=== PATIENT | male | born 1985 | race Caucasian/White ===

== ENCOUNTER 2017-01-09 08:41 | Emergency (ER) | payer OTHER ==
[2017-01-09 09:02] VITALS: BP 147/89
--- NOTE | 2017-01-09 09:12 | UC ---
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 BACK PAIN X 1 WEEK - History of Current Complaint Chief Complaint: UCBackPain Stated Complaint: BACK PAIN Time Seen by Provider: 01/09/17 09:05 Hx Obtained From: Patient Onset/Duration: Sudden Onset Severity Initially: Moderate Severity Currently: Mild Pain Scale Used: 0-10 Numeric - 7 Back Pain: Is Diffuse Character: Sharp, Spasmodic, Stiffness Aggravating: Movement, Lifting, Bending Associated Signs And Symptoms: Positive: Negative - Allergies/Home Medications Allergies/Adverse Reactions: Allergies Allergy/AdvReac Type Severity Reaction Status Date / Time Hydrocodone [From Vicodin] AdvReac Vomiting Verified 01/09/17 08:52 PMH/Surg Hx/FS Hx/Imm Hx Other History Of: Negative For: HIV, Hepatitis B, Hepatitis C, Anticoagulant Therapy - Surgical History Surgical History: None - Family History Known Family History: Positive: None, Hypertension, Diabetes Family History: no known cardio-vascular issues in family lineage - Social History Alcohol Use: None Substance Use Type: Marijuana Substance Use Comment - Amount & Last Used: Daily Smoking Status (MU): Current Every Day Smoker Type: Cigarettes Amount Used/How Often: 1 pack q 2-3 days Length of Time of Smoking/Using Tobacco: 16 years Have You Smoked in the Last Year: Yes Household Exposure Type: Cigarettes - Immunization History Most Recent Influenza Vaccination: not utd Most Recent Tetanus Shot: utd Most Recent Pneumonia Vaccination: none Review of Systems Skin: Negative Eyes: Negative ENT: Negative Motor: Negative Neurovascular: Negative Musculoskeletal: Negative Neurological: Negative Psychological: Negative All Other Systems Reviewed And Are Negative: Yes Physical Exam Triage Information Reviewed: Yes Appearance: Well-Appearing Vital Signs: Initial Vital Signs Temp 36.7 C 01/09/17 08:48 Pulse 79 01/09/17 08:48 Resp 16 01/09/17 08:48 BP 147/89 01/09/17 08:48 Pulse Ox 98 01/09/17 08:48 Eye Exam: Normal ENT Exam: Normal Neck exam: Normal Neck: Positive: Supple Respiratory Exam: Normal Cardiovascular Exam: Normal Abdominal Exam: Normal Musculoskeletal Exam: Normal Musculoskeletal: Positive: ROM Limited @ - PARASPINAL LUMBAR BACK SPASM Neurological Exam: Normal Skin Exam: Normal Back Pain Course/Dx - Differential Dx/Diagnosis Provider Diagnoses: BACK PAIN Discharge - Discharge Plan Condition: Stable Disposition: HOME
== END 2017-01-09 09:35 | disposition home or self-care (01) ==
LOC: UCEAST 08:41
DX: M54.9 Dorsalgia, unspecified (principal); F12.90 Cannabis use, unspecified, uncomplicated; Z88.5 Allergy status to narcotic agent; Z87.891 Personal history of nicotine dependence
CPT/HCPCS: 99212; G0463

== ENCOUNTER 2017-10-07 18:12 | Emergency (ER) | payer OTHER ==
[2017-10-07 18:23] VITALS: BP 146/84
--- NOTE | 2017-10-07 18:34 | UC ---
Respiratory Complaint HPI - HPI Summary HPI Summary: worsening right ear, sinus, and sore throat pain for over 1 week, cough also - History of Current Complaint Chief Complaint: UCRespiratory Stated Complaint: DIFFICULTY BREATHING,COUGH,ST Time Seen by Provider: 10/07/17 18:31 Hx Obtained From: Patient Onset/Duration: Sudden Onset, Lasting Weeks - 1, Still Present Timing: Constant Severity Initially: Severe Severity Currently: Severe Pain Intensity: 9 Pain Scale Used: 0-10 Numeric Character: Cough: Nonproductive Aggravating Factors: Nothing Alleviating Factors: Nothing Associated Signs And Symptoms: Positive: Fever, Chills, Pleuritic Chest Pain, URI, Nasal Congestion, Sinus Discomfort - Allergies/Home Medications Allergies/Adverse Reactions: Allergies Allergy/AdvReac Type Severity Reaction Status Date / Time acetaminophen [From Vicodin] Allergy Vomiting Verified 10/07/17 18:23 hydrocodone [From Vicodin] Allergy Vomiting Verified 10/07/17 18:23 PMH/Surg Hx/FS Hx/Imm Hx Previously Healthy: Yes Other History Of: Negative For: HIV, Hepatitis B, Hepatitis C, Anticoagulant Therapy - Surgical History Surgical History: None - Family History Known Family History: Positive: None, Hypertension, Diabetes Family History: no known cardio-vascular issues in family lineage - Social History Occupation: Employed Full-time Lives: With Family Alcohol Use: Occasionally Substance Use Type: Marijuana Substance Use Comment - Amount & Last Used: OCCASIONALLY Smoking Status (MU): Light Every Day Tobacco Smoker Type: Cigarettes Amount Used/How Often: 1/4 PPD Length of Time of Smoking/Using Tobacco: 16 years Have You Smoked in the Last Year: Yes Household Exposure Type: Cigarettes Cessation Counseling: Counseled 3+Min - 10 Min - Immunization History Most Recent Influenza Vaccination: not utd Most Recent Tetanus Shot: utd Most Recent Pneumonia Vaccination: none Review of Systems Constitutional: Chills, Fatigue Skin: Negative Eyes: Negative ENT: Negative Respiratory: Negative Cardiovascular: Negative Gastrointestinal: Negative Genitourinary: Negative Motor: Negative Neurovascular: Negative Musculoskeletal: Negative Neurological: Negative Psychological: Negative Is Patient Immunocompromised?: No All Other Systems Reviewed And Are Negative: Yes Physical Exam Triage Information Reviewed: Yes Appearance: Well-Nourished, Ill-Appearing, Pain Distress - mild Vital Signs: Initial Vital Signs Temp 98.6 F 10/07/17 18:20 Pulse 68 03/28/18 18:20 Resp 18 10/07/17 18:20 BP 146/84 10/07/17 18:20 Pulse Ox 99 10/07/17 18:20 Vital Signs Reviewed: Yes Eye Exam: Normal Eyes: Positive: Conjunctiva Clear ENT Exam: Normal ENT: Positive: Normal ENT inspection, Hearing grossly normal, Pharynx normal, Nasal congestion, TMs normal, Sinus tenderness, Uvula midline. Negative: Tonsillar swelling, Tonsillar exudate, Trismus, Muffled voice, Hoarse voice, Dental tenderness Dental Exam: Normal Neck exam: Normal Neck: Positive: Supple, Nontender, No Lymphadenopathy Respiratory Exam: Normal Respiratory: Positive: Chest non-tender, Lungs clear, Normal breath sounds, No respiratory distress, No accessory muscle use Cardiovascular Exam: Normal Cardiovascular: Positive: RRR, No Murmur, Pulses Normal, Brisk Capillary Refill Musculoskeletal Exam: Normal Musculoskeletal: Positive: Strength Intact, ROM Intact, No Edema Neurological Exam: Normal Neurological: Positive: Alert, Muscle Tone Normal Psychological Exam: Normal Skin Exam: Normal UC Diagnostic Evaluation - Laboratory O2 Sat by Pulse Oximetry: 99 Diagnostic Studies Comment: Influenza A/B (-), Strep (-) Respiratory Course/Dx - Course Course Of Treatment: Augmentin, albuterol, mucinex D increase fluids, tylenol, ibuprofen, smoking cesasation - Differential Dx/Diagnosis Provider Diagnoses: Acute rhinosinusitis, nicotine dependant, bronchospasm, elevated blood pressure without dx of hypertension Discharge - Sign-Out/Discharge Documenting (check all that apply): Discharge - Discharge Plan Condition: Stable Disposition: HOME Prescriptions: Albuterol HFA INHALER* [Ventolin HFA Inhaler*] 2 puff INH Q4H PRN #1 mdi PRN Reason: cough/wheeze Amoxicillin/Clavulanate TAB* [Augmentin TAB 875*] 875 mg PO BID #20 tab Patient Education Materials: How to Stop Smoking (ED), Sinusitis (ED), Hypertension (ED), Bronchospasm (ED) Forms: *Work Release Referrals: Demetris Muro MD [Primary Care Provider] - 2 Weeks - Billing Disposition and Condition Condition: STABLE Disposition: HOME
[2017-10-07] MEDS ORDERED: Albuterol/Ipratropium NEB.SOL* Albuterol 2.5 MG/Ipratropium 0.5 MG 3 ML INH ONE (18:47)
== END 2017-10-07 19:39 | disposition home or self-care (01) ==
LOC: UCEAST 18:12
DX: J01.90 Acute sinusitis, unspecified (principal); J98.01 Acute bronchospasm; R03.0 Elevated blood-pressure reading, without diagnosis of hypertension; Z88.6 Allergy status to analgesic agent; Z88.5 Allergy status to narcotic agent; Z71.6 Tobacco abuse counseling; F17.210 Nicotine dependence, cigarettes, uncomplicated
CPT/HCPCS: 87502; 87651; 99212; A9270-GY; G0463

== ENCOUNTER 2017-11-18 11:23 | Emergency (ER) | payer OTHER ==
[2017-11-18] MEDS ORDERED: Ondansetron ODT TAB* 4 MG SL ONE (12:38)
[2017-11-18] MEDS ORDERED: SUMAtriptan SQ* 6 MG/0.5 ML VIAL SUBCUT ONE (12:38)
--- NOTE | 2017-11-18 13:10 | UC ---
Headache HPI - HPI Summary HPI Summary: Patient is a 32-year-old male presenting to the with chief complaint of headache 3 days and nausea. He also endorses photophobia. Denies any history of migraines, tension headaches, ocular headaches. History of hypertension, but takes no medications. He endorses nausea with headache, but no vomiting. Headache is 9 and a 10, constant, throbbing and located in the bilateral temporal region and frontal region. Been taking Excedrin 3 days without relief. He takes no blood thinners, denies any head injury. He has never seen a neurologist. - History Of Current Complaint Hx Obtained From: Patient Onset/Duration: Sudden Onset Onset Of Symptoms: Gradual Initially Headache Was: Initial Pain Scale(0-10)= - 9 Currently Pain Is: Current Pain Scale(0-10)= - 9 Pain Intensity: 8 Pain Scale Used: 0-10 Numeric Timing: Constant Character: Throbbing Location of Headache: Frontal, Temporal Aggravating Factor(s): Bright Lights Allevating Factor(s): Rest Associated Signs And Symptoms: Positive: Dizziness, Nausea. Negative: Seizure, Vomiting, Fever, Neck Pain, Neck Stiffness, Decreased LOC, Visual Changes - Risk Factors SAH Risk Factors: Negative Meningitis Risk Factors: Negative SDH Risk Factors: Male Temporal Arteritis Risk Factors: <Anita Chavez - Last Filed: 11/19/17 11:21> <Nancy Frazier - Last Filed: 11/20/17 08:01> - History Of Current Complaint Chief Complaint: UCHeadache Stated Complaint: HEADACHE NAUSEA Time Seen by Provider: 11/18/17 11:58 - Allergies/Home Medications Allergies/Adverse Reactions: Allergies Allergy/AdvReac Type Severity Reaction Status Date / Time acetaminophen [From Vicodin] Allergy Vomiting Verified 11/18/17 11:50 hydrocodone [From Vicodin] Allergy Vomiting Verified 11/18/17 11:50 Home Medications: Home Medications Aspirin/Acetaminophen/Caffeine [Excedrin Extra Strength Caplet] 2 each PO [History] PMH/Surg Hx/FS Hx/Imm Hx Previously Healthy: Yes Other History Of: Negative For: HIV, Hepatitis B, Hepatitis C, Anticoagulant Therapy - Surgical History Surgical History: None - Family History Known Family History: Positive: Hypertension, Diabetes Family History: no known cardio-vascular issues in family lineage - Social History Occupation: Employed Full-time Lives: With Family Alcohol Use: Rare Substance Use Type: Marijuana Substance Use Comment - Amount & Last Used: OCCASIONALLY Smoking Status (MU): Light Every Day Tobacco Smoker Type: Cigarettes Amount Used/How Often: 1/4 PPD Length of Time of Smoking/Using Tobacco: 16 years Have You Smoked in the Last Year: Yes Household Exposure Type: Cigarettes - Immunization History Most Recent Influenza Vaccination: not utd Most Recent Tetanus Shot: utd Most Recent Pneumonia Vaccination: none <Anita Chavez - Last Filed: 11/19/17 11:21> Review of Systems Constitutional: Negative Skin: Negative Eyes: Negative Respiratory: Negative Cardiovascular: Negative Neurovascular: Negative Musculoskeletal: Negative Neurological: Headache Psychological: Negative Is Patient Immunocompromised?: No All Other Systems Reviewed And Are Negative: Yes <Anita Chavez - Last Filed: 11/19/17 11:21> Physical Exam Triage Information Reviewed: Yes Appearance: Well-Appearing, No Pain Distress, Well-Nourished Vital Signs: Initial Vital Signs Temp 98.3 F 11/18/17 11:47 Pulse 73 11/18/17 11:47 Resp 18 11/18/17 11:47 BP 151/88 11/18/17 11:47 Pulse Ox 99 11/18/17 11:47 Vital Signs Reviewed: Yes Eye Exam: Normal Eyes: Positive: Conjunctiva Clear Neck exam: Normal Neck: Positive: Supple, No Lymphadenopathy Respiratory Exam: Normal Respiratory: Positive: Chest non-tender, Lungs clear Cardiovascular Exam: Normal Cardiovascular: Positive: RRR Musculoskeletal Exam: Normal Musculoskeletal: Positive: Strength Intact Neurological: Positive: Alert Psychological: Positive: Normal Response To Family, Age Appropriate Behavior Skin Exam: Normal <Anita Chavez - Last Filed: 11/19/17 11:21> Vital Signs: Initial Vital Signs Temp 98.3 F 11/18/17 11:47 Pulse 73 11/18/17 11:47 Resp 18 11/18/17 11:47 BP 151/88 11/18/17 11:47 Pulse Ox 99 11/18/17 11:47 <Nancy Frazier - Last Filed: 11/20/17 08:01> Headache Course/Dx - Course Course Of Treatment: During the course of treatment, the patient is evaluated for acute migraine headache. He is given sumatriptan and ODT Zofran on arrival. EKG obtained which shows normal sinus rhythm at rate of 68. He endorses mild amount of dizziness with headache, but denies this currently. His vital signs are stable and BP is noted to be 151/88. Denies any visual changes or disturbances, denies any pain in the occipital region, denies any tearing from the eyes. Endorses photophobia. He is given Toradal and solumedrol. After 1 hour, rechecked with good effect. He denies any complaints at this time. I have advised he take the toradol, prednisone and take any bendadryl at night for any continuing migraines. He agrees and is Ok for discharge. Return precautions are given. - Differential Dx/Diagnosis Differential Diagnosis/HQI/PQRI: Migraine, Sinus Headache, Tension Headache Provider Diagnoses: Migraine <Anita Chavez - Last Filed: 11/19/17 11:21> Discharge - Sign-Out/Discharge Documenting (check all that apply): Discharge/Admit/Transfer - Billing Disposition and Condition Condition: STABLE Disposition: HOME <Anita Chavez - Last Filed: 11/19/17 11:21> - Billing Disposition and Condition Condition: STABLE Disposition: HOME <Nancy Frazier - Last Filed: 11/20/17 08:01> - Discharge Plan Condition: Stable Disposition: HOME Prescriptions: Ketorolac TAB * [Toradol TAB *] 10 mg PO Q6H #16 tab Ondansetron ODT TAB* [Zofran 4 MG Odt TAB*] 4 mg PO Q6H PRN #12 tab.odt MDD 4 PRN Reason: Nausea predniSONE TAB* [Deltasone TAB*] 50 mg PO DAILY #5 tab MDD 1 Patient Education Materials: Migraine Headache (ED) Forms: *Work Release Referrals: Demetris Muro MD [Primary Care Provider] - Additional Instructions: Please follow up with neurologist if symptoms persist Zofran up to 4 times daily as needed for nausea Toradol 4 times daily for headache Prednisone 50 mg once daily in the morning 5 days Attestation Statement User Type: Provider - I was available for consult. This patient was seen by the [facility]. The patient was not presented to, seen by, or examined by me. -[place] <Nancy Frazier - Last Filed: 11/20/17 08:01>
[2017-11-18] MEDS ORDERED: Butalb/Acetamin/Caff TAB* 1 TAB PO ONE (13:48)
[2017-11-18] MEDS ORDERED: methylPREDNISolone SOD 40 MG* 1 ML VIAL IM ONE (14:14)
[2017-11-18] MEDS ORDERED: Ketorolac INJ* 60 MG/2 ML VIAL IM ONE (14:14)
[2017-11-18 15:16] VITALS: BP 169/74
== END 2017-11-18 15:32 | disposition home or self-care (01) ==
LOC: UCEAST 11:23
DX: G43.909 Migraine, unspecified, not intractable, without status migrainosus (principal); R42 Dizziness and giddiness; R11.0 Nausea; Z88.6 Allergy status to analgesic agent; Z88.5 Allergy status to narcotic agent; F17.210 Nicotine dependence, cigarettes, uncomplicated
CPT/HCPCS: 93005; 96372; 99212; A9270-GY; G0463; J1885; J2920; J3030

== ENCOUNTER 2017-12-14 16:55 | Emergency (ER) | payer OTHER ==
[2017-12-14] MEDS ORDERED: Ketorolac INJ* 30 MG/ML 1 ML VIAL IV PUSH PRN (19:32)
[2017-12-14] MEDS ORDERED: diPHENhydraMINE IV* 50 MG/ML 1 ml VIAL (BENADRYL) IV ONE (19:33)
[2017-12-14] MEDS ORDERED: Metoclopramide IV* 5 MG/ML 2 ML VIAL IV SLOW PU ONE (19:33)
[2017-12-14] MEDS ORDERED: NS 0.9% 1000 ML* 1,000 ML IV ONE (19:33)
[2017-12-14] MEDS ORDERED: Ketorolac INJ* 30 MG/ML 1 ML VIAL ONE (20:08)
--- NOTE | 2017-12-14 21:02 | ED ---
Aliza Hernandez Emily, scribed for Negar López MD on 12/14/17 at 1942 . Headache - HPI Summary HPI Summary: This patient is a 32 year old M presenting to [facility] accompanied by family with a chief complaint of frontal headache that began at 0300 this morning. The patient rates the pain 10/10 in severity. Symptoms aggravated by bright lights. Symptoms alleviated by nothing. Patient reports dizziness and nausea. He reports that he has taken 3 tramadol throughout the day with no relief of symptoms. The patient reports that he began getting frequent headaches 2 weeks ago. - History Of Current Complaint Chief Complaint: EDHeadache Stated Complaint: HEADACHE Time Seen by Provider: 12/14/17 19:14 Hx Obtained From: Patient Onset/Duration: Sudden Onset, Started hours ago, Still Present Initially Headache Was: Severe Currently Pain Is: Severe Timing: Constant Character: Migraine Location of Headache: Frontal Aggravating Factor: Bright Lights Allevating Factors: Nothing Associated Signs And Symptoms: Dizziness, Nausea - Allergies/Home Medications Allergies/Adverse Reactions: Allergies Allergy/AdvReac Type Severity Reaction Status Date / Time acetaminophen [From Vicodin] Allergy Vomiting Verified 12/14/17 17:04 hydrocodone [From Vicodin] Allergy Vomiting Verified 12/14/17 17:04 PMH/Surg Hx/FS Hx/Imm Hx Previously Healthy: No Endocrine/Hematology History: Denies: Hx Anticoagulant Therapy, Hx Diabetes, Hx Thyroid Disease Cardiovascular History: Reports: Hx Hypertension - NO MEDICATIONS Denies: Hx Congestive Heart Failure, Hx Deep Vein Thrombosis, Hx Myocardial Infarction, Hx Pacemaker/ICD Respiratory History: Reports: Hx Asthma - He is not on medications for this. He is "supposed" to have an albut. MDI Denies: Hx Chronic Obstructive Pulmonary Disease (COPD), Hx Lung Cancer, Hx Pneumonia, Hx Pulmonary Embolism GI History: Denies: Hx Gall Bladder Disease, Hx Gastrointestinal Bleed, Hx Ulcer, Hx Urosepsis History: Denies: Hx Kidney Stones, Hx Renal Disease Neurological History: Reports: Hx Migraine - He states that he has chronic headaches, but no dx of migraine. Denies: Hx Dementia, Hx Seizures, Hx Transient Ischemic Attacks (TIA) Psychiatric History: Denies: Hx Anxiety, Hx Depression, Hx Schizophrenia, Hx Bipolar Disorder Infectious Disease History: No Infectious Disease History: Denies: Hx Clostridium Difficile, Hx Hepatitis, Hx Human Immunodeficiency Virus (HIV), Hx of Known/Suspected MRSA, Hx Shingles, Hx Tuberculosis, Hx Known/ Suspected VRE, Hx Known/Suspected VRSA, History Other Infectious Disease, Traveled Outside the [place] in Last 30 Days - Family History Known Family History: Positive: Hypertension, Diabetes - Social History Occupation: Employed Full-time Lives: With Family Alcohol Use: Rare Hx Substance Use: Yes Substance Use Type: Reports: Marijuana Substance Use Comment - Amount & Last Used: OCCASIONALLY Hx Tobacco Use: Yes Smoking Status (MU): Smoker, Current Status Unknown Type: Cigarettes Amount Used/How Often: 1/4 PPD Length of Time of Smoking/Using Tobacco: 16 years Have You Smoked in the Last Year: Yes Review of Systems Positive: Nausea Neurological: Other - Positive dizziness Positive: Headache All Other Systems Reviewed And Are Negative: Yes Physical Exam - Summary Physical Exam Summary: VITAL SIGNS: Reviewed. GENERAL: ~Patient is a well-developed and nourished male who is lying comfortable in the stretcher. Patient is not in any acute respiratory distress. HEAD AND FACE: No signs of trauma. No ecchymosis, hematomas or skull depressions. No sinus tenderness. EYES: PERRLA, EOMI x 2, No injected conjunctiva, no nystagmus. EARS: Hearing grossly intact. Ear canals and tympanic membranes are within normal limits. MOUTH: Oropharynx within normal limits. NECK: Supple, trachea is midline, no adenopathy, no JVD, no carotid bruit, no c- spine tenderness, neck with full ROM. CHEST: Symmetric, no tenderness at palpation LUNGS: Clear to auscultation bilaterally. No wheezing or crackles. CVS: Regular rate and rhythm, S1 and S2 present, no murmurs or gallops appreciated. ABDOMEN: Soft, non-tender. No signs of distention. No rebound no guarding, and no masses palpated. Bowel sounds are normal. EXTREMITIES: FROM in all major joints, no edema, no cyanosis or clubbing. NEURO: Alert and oriented x 3. No acute neurological deficits. Speech is normal and follows commands. SKIN: Dry and warm Triage Information Reviewed: Yes Vital Signs On Initial Exam: Initial Vitals Temp Pulse Resp BP Pulse Ox 98.9 F 86 17 147/87 97 12/14/17 17:12/14/17 17:01 12/14/17 17:12/14/17 17:12/14/17 17:01 Vital Signs Reviewed: Yes Diagnostics - Vital Signs Vital Signs Temp Pulse Resp BP Pulse Ox 12/14/17 17:01 98.9 F 86 17 147/87 97 - Laboratory Lab Statement: Any lab studies that have been ordered have been reviewed, and results considered in the medical decision making process. Re-Evaluation - Re-Evaluation First Eval Re-Evaluation Time: 20:51 Change: Improved Comment: Pt reports his symptoms have improved. Discussed plan of care with the patient. Headache Course/Dx - Course Assessment/Plan: This patient is a 32 year old M presenting to [facility] accompanied by family with a chief complaint of frontal headache that began at 0300 this morning. In the ED course, the patient received fluids, Reglan, Toradol, and Benadryl. The patient will be discharged home with follow up from PCP. The patient is agreeable with this plan. - Diagnoses Provider Diagnoses: Headache Discharge - Sign-Out/Discharge Documenting (check all that apply): Discharge/Admit/Transfer - Discharge home - Discharge Plan Condition: Stable Disposition: HOME Patient Education Materials: Acute Headache (ED) Referrals: Demetris Muro MD [Primary Care Provider] - 3 Days Additional Instructions: RETURN TO THE EMERGENCY DEPARTMENT FOR NEW OR WORSENING SYMPTOMS The documentation as recorded by the Aliza murphy Emily accurately reflects the service I personally performed and the decisions made by , Negar López MD.
[2017-12-14 21:13] VITALS: BP 134/74
== END 2017-12-14 21:35 | disposition home or self-care (01) ==
LOC: ED 16:55
DX: R51 Headache (principal); R42 Dizziness and giddiness; R11.0 Nausea; I10 Essential (primary) hypertension; J45.909 Unspecified asthma, uncomplicated; Z88.6 Allergy status to analgesic agent; Z88.5 Allergy status to narcotic agent; Z82.49 Family history of ischemic heart disease and other diseases of the circulatory system; Z83.3 Family history of diabetes mellitus; F17.210 Nicotine dependence, cigarettes, uncomplicated
CPT/HCPCS: 96374; 96375; 99284; J1200; J1885; J2765

== ENCOUNTER 2017-12-21 10:54 | Emergency (ER) | payer OTHER ==
[2017-12-21 11:01] VITALS: BP 135/80
--- NOTE | 2017-12-21 11:14 | UC ---
Lower Extremity/Ankle HPI - HPI Summary HPI Summary: injured right foot going up the stairs 4-6 weeks ago---xavier wrap provides some relief- pain in the right talus -navicular area - History of Current Complaint Hx Obtained From: Patient Onset/Duration: Sudden Onset, Lasting Weeks - 4-6, Still Present Pain Intensity: 7 Pain Scale Used: 0-10 Numeric Aggravating Factor(s): Standing, Ambulation Alleviating Factor(s): Rest, Elevation Able to Bear Weight: Yes <Clarissa Gonzalez - Last Filed: 12/21/17 12:02> <Lauro Maciel - Last Filed: 12/21/17 13:03> - History of Current Complaint Chief Complaint: UCLowerExtremity Stated Complaint: ANKLE INJURY Time Seen by Provider: 12/21/17 11:07 - Allergies/Home Medications Allergies/Adverse Reactions: Allergies Allergy/AdvReac Type Severity Reaction Status Date / Time acetaminophen [From Vicodin] Allergy Vomiting Verified 12/14/17 17:04 hydrocodone [From Vicodin] Allergy Vomiting Verified 12/14/17 17:04 PMH/Surg Hx/FS Hx/Imm Hx Previously Healthy: Yes Other History Of: Negative For: HIV, Hepatitis B, Hepatitis C, Anticoagulant Therapy - Surgical History Surgical History: None - Family History Known Family History: Positive: Hypertension, Diabetes - Social History Occupation: Employed Full-time - at [employer] Lives: With Family Alcohol Use: Rare Substance Use Type: Marijuana Substance Use Comment - Amount & Last Used: OCCASIONALLY Smoking Status (MU): Smoker, Current Status Unknown Type: Cigarettes Amount Used/How Often: 1/4 PPD Length of Time of Smoking/Using Tobacco: 16 years Have You Smoked in the Last Year: Yes Household Exposure Type: Cigarettes - Immunization History Most Recent Influenza Vaccination: not utd Most Recent Tetanus Shot: utd Most Recent Pneumonia Vaccination: none <Clarissa Gonzalez - Last Filed: 12/21/17 12:02> Review of Systems Constitutional: Negative Skin: Negative Eyes: Negative ENT: Negative Respiratory: Negative Cardiovascular: Negative Gastrointestinal: Negative Genitourinary: Negative Motor: Negative Neurovascular: Negative Musculoskeletal: Arthralgia - right foot talus/ navicular area Neurological: Negative Psychological: Negative Is Patient Immunocompromised?: No All Other Systems Reviewed And Are Negative: Yes <Clarissa Gonzalez - Last Filed: 12/21/17 12:02> Physical Exam Triage Information Reviewed: Yes Appearance: Well-Appearing, No Pain Distress, Well-Nourished Vital Signs: Initial Vital Signs Temp 97.9 F 12/21/17 10:57 Pulse 79 12/21/17 10:57 Resp 17 12/21/17 10:57 BP 135/80 12/21/17 10:57 Pulse Ox 100 12/21/17 10:57 Vital Signs Reviewed: Yes Eye Exam: Normal Eyes: Positive: Conjunctiva Clear ENT Exam: Normal ENT: Positive: Normal ENT inspection, Hearing grossly normal. Negative: Trismus , Muffled voice, Hoarse voice Dental Exam: Normal Neck exam: Normal Neck: Positive: Supple, Nontender, No Lymphadenopathy Respiratory Exam: Normal Respiratory: Positive: Chest non-tender, No respiratory distress, No accessory muscle use Cardiovascular Exam: Normal Cardiovascular: Positive: RRR, Pulses Normal, Brisk Capillary Refill Musculoskeletal Exam: Other - c/o pain top of right foot Musculoskeletal: Positive: Strength Intact, ROM Intact, No Edema Neurological Exam: Normal Neurological: Positive: Alert, Muscle Tone Normal Psychological Exam: Normal Skin Exam: Normal <Clarissa Gonzalez - Last Filed: 12/21/17 12:02> Vital Signs: Initial Vital Signs Temp 97.9 F 12/21/17 10:57 Pulse 79 12/21/17 10:57 Resp 12/21/17 10:57 BP 135/80 12/21/17 10:57 Pulse Ox 100 12/21/17 10:57 <Lauro Maciel - Last Filed: 12/21/17 13:03> Diagnostics - Radiology No standard instances Xray Interpretation: No Acute Changes Radiology Interpretation Completed By: ED Physician - Patient Name: LEONOR HARRISON Medical Record#: [id number] Ordering Physician: Clarissa Gonzalez [employer] SOCIAL WORKER Acct.#: [id number] : 1985 Age: 32 Sex: M Location: [facility] Exam Date: 12/21/17 1113 ADM Status: REG ER Order Information: FOOT RIGHT 3+ VWS Accession Number: [id number] CPT: 46043 INDICATION: Right foot pain COMPARISON: None TECHNIQUE: AP, lateral, and oblique views were obtained. FINDINGS: There is no acute bony change. The articular relationships are maintained. There is a small plantar calcaneal spur. Soft tissues are intact. IMPRESSION: NO ACUTE BONY FINDINGS. SUGGEST FOLLOW-UP CLINICALLY INDICATED. <Electronically signed by Barber Christie MD in OV> 12/21/17 1130 Dictated By: Barber Christie MD Dictated Date/Time: 12/21/17 1130 Transcribed Date/Time: 12/21/17 1127 Copy to: CC:Clarissa Gonzalez COMMUN[employer] MENT[employer] HE[employer] SOCIAL WORKER; Lauro Maciel MD; Demetris Muro MD Imaging - [facility] - [facility] [address] [address] ph [phone] ph [phone] ph [phone]) 1 of 1 , Radiologist <Clarissa Gonzalez - Last Filed: 12/21/17 12:02> Lower Extremity Course/Dx - Course Course Of Treatment: naproxen, cam boot xavier wrap follow with ortho if symptoms fail to improve or worsen - Differential Dx/Diagnosis Provider Diagnoses: right foot sprain <Clarissa Gonzalez - Last Filed: 12/21/17 12:02> Discharge - Sign-Out/Discharge Documenting (check all that apply): Discharge/Admit/Transfer - Billing Disposition and Condition Condition: STABLE Disposition: Home <Clarissa Gonzalez - Last Filed: 12/21/17 12:02> - Billing Disposition and Condition Condition: STABLE Disposition: Home <Lauro Maciel - Last Filed: 12/21/17 13:03> - Discharge Plan Condition: Stable Disposition: HOME Prescriptions: Naproxen [Naproxen 500 mg tab] 500 mg PO BID #30 tablet. Patient Education Materials: Foot Sprain (ED), R.I.C.E. Treatment (ED) Forms: *Work Release Referrals: Soheila Smith MD [Medical Doctor] - If Needed Additional Instructions: Per institutional requirements, I have reviewed the chart, however, I was not consulted specifically or made aware of this patient by the midlevel provider. I did not personally evaluate, interact with , or disposition this patient.
--- NOTE | 2017-12-21 11:33 | RAD ---
INDICATION: Right foot pain COMPARISON: None TECHNIQUE: AP, lateral, and oblique views were obtained. FINDINGS: There is no acute bony change. The articular relationships are maintained. There is a small plantar calcaneal spur. Soft tissues are intact. IMPRESSION: NO ACUTE BONY FINDINGS. SUGGEST FOLLOW-UP CLINICALLY INDICATED.
== END 2017-12-21 11:57 | disposition home or self-care (01) ==
LOC: UCEAST 10:54
DX: S93.601A Unspecified sprain of right foot, initial encounter (principal); X58.XXXA Exposure to other specified factors, initial encounter; Y93.9 Activity, unspecified; Y92.9 Unspecified place or not applicable; Z88.6 Allergy status to analgesic agent; Z88.5 Allergy status to narcotic agent; F17.210 Nicotine dependence, cigarettes, uncomplicated; Z82.49 Family history of ischemic heart disease and other diseases of the circulatory system; Z83.3 Family history of diabetes mellitus
CPT/HCPCS: 99212; G0463

== ENCOUNTER 2018-05-03 13:52 | Emergency (ER) | payer OTHER ==
[2018-05-03] MEDS ORDERED: Albuterol/Ipratropium NEB.SOL* Albuterol 2.5 MG/Ipratropium 0.5 MG 3 ML INH ONE (14:42)
--- NOTE | 2018-05-03 14:45 | ED ---
Respiratory - HPI Summary HPI Summary: 33-year-old male presents with cough for the past month. He states cough is productive. He states he is a smoker. He admits occasional chest wall pain. He admits shortness of breath. No abdominal pain. No nausea vomiting. He states he keeps loosing her voice. No sinus condition. He admits to ear pressure. He also admits to headache. has been using mucinex and albuterol for his symptoms. - History of Current Complaint Chief Complaint: EDFluSymptoms Stated Complaint: FLU LIKE SYMPTOMS Time Seen by Provider: 05/03/18 14:31 Pain Intensity: 10 - Allergy/Home Medications Allergies/Adverse Reactions: Allergies Allergy/AdvReac Type Severity Reaction Status Date / Time acetaminophen [From Vicodin] Allergy Vomiting Verified 05/03/18 14:00 hydrocodone [From Vicodin] Allergy Vomiting Verified 05/03/18 14:00 PMH/Surg Hx/FS Hx/Imm Hx Endocrine/Hematology History: Denies: Hx Anticoagulant Therapy, Hx Diabetes, Hx Thyroid Disease Cardiovascular History: Denies: Hx Congestive Heart Failure, Hx Deep Vein Thrombosis, Hx Hypertension , Hx Myocardial Infarction, Hx Pacemaker/ICD Respiratory History: Reports: Hx Asthma - He is not on medications for this. He is "supposed" to have an albut. MDI Denies: Hx Chronic Obstructive Pulmonary Disease (COPD), Hx Lung Cancer, Hx Pneumonia, Hx Pulmonary Embolism GI History: Denies: Hx Gall Bladder Disease, Hx Gastrointestinal Bleed, Hx Ulcer, Hx Urosepsis History: Denies: Hx Kidney Stones, Hx Renal Disease Neurological History: Reports: Hx Migraine - He states that he has chronic headaches, but no dx of migraine. Denies: Hx Dementia, Hx Seizures, Hx Transient Ischemic Attacks (TIA) Psychiatric History: Denies: Hx Anxiety, Hx Depression, Hx Schizophrenia, Hx Bipolar Disorder Infectious Disease History: No Infectious Disease History: Denies: Hx Clostridium Difficile, Hx Hepatitis, Hx Human Immunodeficiency Virus (HIV), Hx of Known/Suspected MRSA, Hx Shingles, Hx Tuberculosis, Hx Known/ Suspected VRE, Hx Known/Suspected VRSA, History Other Infectious Disease, Traveled Outside the [place] in Last 30 Days - Family History Known Family History: Positive: Hypertension, Diabetes Family History: no known cardio-vascular issues in family lineage - Social History Alcohol Use: Rare Hx Substance Use: Yes Substance Use Type: Reports: Marijuana Substance Use Comment - Amount & Last Used: OCCASIONALLY Hx Tobacco Use: Yes Smoking Status (MU): Smoker, Current Status Unknown Type: Cigarettes Amount Used/How Often: 1/4 PPD Length of Time of Smoking/Using Tobacco: 16 years Have You Smoked in the Last Year: Yes Review of Systems Positive: Chills. Negative: Fever Positive: Chest Pain - wall Positive: Shortness Of Breath, Cough Negative: Abdominal Pain All Other Systems Reviewed And Are Negative: Yes Physical Exam Triage Information Reviewed: Yes Vital Signs On Initial Exam: Initial Vitals Temp Pulse Resp BP Pulse Ox 98 F 88 22 123/96 98 05/03/18 13:58 05/03/18 13:58 05/03/18 13:58 05/03/18 13:58 05/03/18 13:58 Vital Signs Reviewed: Yes Appearance: Positive: Well-Appearing Skin: Positive: Warm, Dry Head/Face: Positive: Normal Head/Face Inspection Eyes: Positive: Normal, EOMI, GREGOR, Conjunctiva Clear ENT: Positive: Normal ENT inspection, Pharynx normal, TMs normal - fluid behind TM Neck: Positive: Supple, Nontender, No Lymphadenopathy Respiratory/Lung Sounds: Positive: Breath Sounds Present, Decreased Breath Sounds Cardiovascular: Positive: Normal, RRR Abdomen Description: Positive: Nontender, Soft Bowel Sounds: Positive: Present Musculoskeletal: Positive: Normal Neurological: Positive: Normal Psychiatric: Positive: Normal Diagnostics - Vital Signs Vital Signs Temp Pulse Resp BP Pulse Ox 05/03/18 13:58 98 F 88 22 123/96 98 - Laboratory Result Diagrams: 05/03/18 14:48 05/03/18 14:48 Lab Statement: Any lab studies that have been ordered have been reviewed, and results considered in the medical decision making process. Re-Evaluation - Re-Evaluation First Eval Re-Evaluation Time: 15:50 Change: Improved Comment: feeling better after treatment Disposition - Course Course Of Treatment: 33-year-old male presents with cough for the past month. He states cough is productive. He states he is a smoker. He admits occasional chest wall pain. He admits shortness of breath. No abdominal pain. No nausea vomiting. He states he keeps loosing her voice. No sinus condition. He admits to ear pressure. He also admits to headache. has been using mucinex and albuterol for his symptoms. On exam decreased breath sounds present. lungs CTA. wbc normal. bnp normal. chest xray normal. will discharge with steriod and tessalon. told to follow up with primary. patient understand and agrees with plan. - Differential Dx - Cardiopulmonary Differential Diagnoses - Cardiopulmonary: Bronchitis, Laryngitis, Lower Resp Infection - Diagnoses Provider Diagnoses: Bronchitis Discharge - Sign-Out/Discharge Documenting (check all that apply): Patient Departure - Discharge Plan Condition: Good Disposition: HOME Prescriptions: Benzonatate CAP* [Tessalon 100 MG CAP*] 100 mg PO TID #30 cap predniSONE TAB* [Deltasone 20 MG TAB*] 40 mg PO DAILY #12 tab Patient Education Materials: Acute Bronchitis (ED) Referrals: Demetris Muro MD [Primary Care Provider] - Additional Instructions: Use Tessalon three times a day for cough take 2 tablets once a day for 4 more days, then one tablet for 4 days afterwards Use inhaler one puff every 4 hours for cough as needed Take Tylenol and ibuprofen for pain/fever every 6 hours Follow up with primary within 7 days Return to ED if develop any new or worsening symptoms - Billing Disposition and Condition Condition: GOOD Disposition: Home
[2018-05-03 15:00] LABS: ABS Basophils 0 10^3/ul (0-0.2); ABS Eosinophils 0.3 10^3/ul (0-0.6); ABS Lymphocytes 3.1 10^3/ul (1.0-4.8); ABS Monocytes 0.8 10^3/ul (0-0.8); ABS Neutrophils 5.1 10^3/ul (1.5-7.7); ABS Nucleated RBC 0 10^3/ul; Eosinophil % 2.9 % (0-6); Hematocrit 44 % (42-52); Hemoglobin 15.3 g/dl (14.0-18.0); Lymphocyte % 33.2 % (25-47); Mean Corpuscular HGB Conc 35 g/dl (31-36); Mean Corpuscular Hemoglobin 30 pg (27-31); Mean Corpuscular Volume 85 fL (80-94); Mean Platelet Volume 6.8 um3 (7.4-10.4); Nucleated Red Blood Cells % 0.3; Platelet Count 352 10^3/ul (150-450); Red Blood Count 5.17 10^6/ul (4.00-5.40); Red Cell Distribution Width 13 % (10.5-15); White Blood Count 9.2 10^3/ul (3.5-10.8)
[2018-05-03 15:12] LABS: EGFR Non-African American 79.5 (>60)
[2018-05-03] MEDS ORDERED: predniSONE TAB* 20 MG PO ONE (15:18)
--- NOTE | 2018-05-03 15:27 | RAD ---
HISTORY: cough COMPARISONS: April 22, 2014 VIEWS: 4: Frontal dual-energy and lateral views of the chest. FINDINGS: CARDIOMEDIASTINAL SILHOUETTE: The cardiomediastinal silhouette is normal. MICHELLE: The michelle are normal. PLEURA: The costophrenic angles are sharp. No pleural abnormalities are noted. LUNG PARENCHYMA: The lungs are clear. ABDOMEN: The upper abdomen is clear. There is no subphrenic gas. BONES AND SOFT TISSUES: No bone or soft tissue abnormalities are noted. OTHER: None. IMPRESSION: NO ACTIVE CARDIOPULMONARY DISEASE.
[2018-05-03] MEDS ORDERED: Benzonatate CAP* 100 MG PO ONE (15:47)
[2018-05-03 16:17] VITALS: BP 155/94
== END 2018-05-03 16:19 | disposition home or self-care (01) ==
LOC: ED 13:52
DX: J40 Bronchitis, not specified as acute or chronic (principal); R05 Cough; Z72.0 Tobacco use; R06.02 Shortness of breath; R07.89 Other chest pain
CPT/HCPCS: 36415; 71046; 80053; 83880; 85025; 99282; A9270-GY; J7512

== ENCOUNTER 2018-10-21 17:30 | Observation (INO) | payer OTHER ==
[2018-10-21] MEDS ORDERED: NS 0.9% 1000 ML** 1,000 ML IV ONE (17:43)
--- NOTE | 2018-10-21 17:45 | ED ---
Neurological HPI - HPI Summary HPI Summary: A 33 y/o M presents to ED with c/o CP and L fingertip numbness onset 1530. At its worst, the CP was rated 9 out of 10 and radiated to his lower back. CP is still present but milder. His fingertip numbness was going up his LUE at onset, ut at bedside, is only in his finger tips. Per pt, his co-workers said he was slurring his speech and was flushed in the face. PMHx: denies. No daily medications. FHx includes father having multiple VT. He is unsure if there's any stroke hx in his family. No daily medications. No major surgeries. Allergies discussed. - History of Current Complaint Chief Complaint: EDNeurologicalDeficit Stated Complaint: LEFT ARM NUMBNESS, CHEST PAIN, SLURRED SPEECH PER Hx Obtained From: Patient Onset/Duration: Sudden Onset, Started hours ago, Still Present Timing: Constant Onset Severity: Severe - CP Current Severity: Moderate Neurological Deficit Location: LUE - numbness to fingers Pain Intensity: 9 Pain Scale Used: 0-10 Numeric Associated Signs and Symptoms: Positive: Impaired Speech, Numbness - L fingertips, Chest Pain - Allergy/Home Medications Allergies/Adverse Reactions: Allergies Allergy/AdvReac Type Severity Reaction Status Date / Time acetaminophen [From Vicodin] Allergy Vomiting Verified 10/21/18 19:12 hydrocodone [From Vicodin] Allergy Vomiting Verified 10/21/18 19:12 Home Medications: Home Medications NK [No Home Medications Reported] 10/21/18 [History Confirmed 10/21/18] PMH/Surg Hx/FS Hx/Imm Hx Previously Healthy: Yes Endocrine/Hematology History: Denies: Hx Anticoagulant Therapy, Hx Diabetes, Hx Thyroid Disease Cardiovascular History: Denies: Hx Congestive Heart Failure, Hx Deep Vein Thrombosis, Hx Hypertension , Hx Myocardial Infarction, Hx Pacemaker/ICD Respiratory History: Reports: Hx Asthma - He is not on medications for this. He is "supposed" to have an albut. MDI Denies: Hx Chronic Obstructive Pulmonary Disease (COPD), Hx Lung Cancer, Hx Pneumonia, Hx Pulmonary Embolism GI History: Denies: Hx Gall Bladder Disease, Hx Gastrointestinal Bleed, Hx Ulcer, Hx Urosepsis History: Denies: Hx Kidney Stones, Hx Renal Disease Neurological History: Reports: Hx Migraine - He states that he has chronic headaches, but no dx of migraine. Denies: Hx Dementia, Hx Seizures, Hx Transient Ischemic Attacks (TIA) Psychiatric History: Denies: Hx Anxiety, Hx Depression, Hx Schizophrenia, Hx Bipolar Disorder Infectious Disease History: No Infectious Disease History: Denies: Hx Clostridium Difficile, Hx Hepatitis, Hx Human Immunodeficiency Virus (HIV), Hx of Known/Suspected MRSA, Hx Shingles, Hx Tuberculosis, Hx Known/ Suspected VRE, Hx Known/Suspected VRSA, History Other Infectious Disease, Traveled Outside the [place] in Last 30 Days - Family History Known Family History: Positive: Hypertension, Diabetes Family History: no known cardio-vascular issues in family lineage - Social History Occupation: Employed Full-time Lives: With Family Alcohol Use: Rare Hx Substance Use: Yes Substance Use Type: Reports: Marijuana Substance Use Comment - Amount & Last Used: OCCASIONALLY Hx Tobacco Use: Yes Smoking Status (MU): Smoker, Current Status Unknown Type: Cigarettes Amount Used/How Often: 1/4 PPD Length of Time of Smoking/Using Tobacco: 16 years Have You Smoked in the Last Year: Yes Review of Systems Positive: Other - pos: flushed. Negative: Fever Positive: Chest Pain Positive: Numbness - L fingertips, Slurred Speech All Other Systems Reviewed And Are Negative: Yes Physical Exam - Summary Physical Exam Summary: GENERAL: Patient is a well-developed and nourished MALE who is lying comfortable in the stretcher. Patient is not in any acute respiratory distress. HEAD AND FACE: Normocephalic EYES: PERRLA, EOMI x 2. EARS: Hearing grossly intact. MOUTH: Oropharynx within normal limits. NECK: Supple, trachea is midline, no adenopathy, no JVD, no carotid bruit. CHEST: Symmetric, no tenderness at palpation LUNGS: Clear to auscultation bilaterally. No wheezing or crackles. CVS: Regular rate and rhythm, S1 and S2 present, no murmurs or gallops appreciated. ABDOMEN: Soft, non-tender. Bowel sounds are normal. No abdominal abnormal pulsations. EXTREMITIES: Full ROM in all major joints, no edema, no cyanosis or clubbing. NEURO: Alert and oriented x 3. Speech is normal and follows commands. NIH: 1. SKIN: Dry and warm Triage Information Reviewed: Yes Vital Signs On Initial Exam: Initial Vitals Temp Pulse Resp BP Pulse Ox 98.1 F 101 16 168/99 98 10/21/18 17:34 10/21/18 17:34 10/21/18 17:34 10/21/18 17:34 10/21/18 17:34 Vital Signs Reviewed: Yes - Kasia Coma Scale Best Eye Response: 4 - Spontaneous Best Motor Response: 6 - Obeys Commands Best Verbal Response: 5 - Oriented Coma Scale Total: 15 Diagnostics - Vital Signs Vital Signs Temp Pulse Resp BP Pulse Ox 10/21/18 17:34 98.1 F 101 16 168/99 98 - Laboratory Result Diagrams: 10/21/18 17:46 10/21/18 17:46 Lab Statement: Any lab studies that have been ordered have been reviewed, and results considered in the medical decision making process. - Radiology CXR Radiology Interpretation Completed By: ED Physician Summary of Radiographic Findings: No acute process. - CT BRAIN CT CT Interpretation Completed By: Radiologist Summary of CT Findings: IMPRESSION: No acute intracranial abnormality. ED provider has reviewed this report. - EKG 1759 Cardiac Rate: NL - 92 bpm EKG Rhythm: Sinus Rhythm Summary of EKG Findings: No ischemic changes. NIH Scale - NIH Scale Level of Consciousness: Alert/Keenly Responsive Ask Patient the Month and His/Her Age: Both Correct Ask Pt to Open/Close Eyes and Roads Superintendent/Release Non-Paretic Hand: Both Correctly Best Gaze (Only Horizontal Eye Movement): Normal Visual Field Testing: No Visual Loss Facial Paresis-Pt to Smile & Close Eyes or Grimace Symmetry: Normal/Symmetrical Motor Function - Right Arm: No Drift-Holds 10 Seconds Motor Function - Left Arm: No Drift-Holds 10 Seconds Motor Function - Right Leg: No Drift-Holds 10 Seconds Motor Function - Left Leg: No Drift-Holds 10 Seconds Limb Ataxia-Must be out of Proportion to Weakness Present: Absent Sensory (Use Pinprick to Test Arms/Legs/Trunk/Face): Pinprick Less on Affected Best Language (Describe Picture, Name Items): No Aphasia Dysarthria (Read Several Words): Normal Extinction and Inattention: No Abnormality Total Score: 1 Re-Evaluation - Re-Evaluation 1 Re-Evaluation Time: 18:25 Change: Unchanged Comment: Discussed at length risks and benefits of TPA. Pt, Dr. Orellana and I agree that risks of TPA are too high. At this point, will do further work up and recommend for admission. Course/Dx - Course Course Of Treatment: Pt is a 33 y/o M presenting with CP, L fingertip numbness and slurred speech (resolved) onset 1530. PMHx: denies. FHx includes father having multiple VT. He's unsure of any stroke hx in his family. NIH: 1, GCS: 15 at bedside. CXR and Brain CT are unremarkable. Consulted with [facility], neurology, who notes neuro deficits are too small for TPA, recommends discussing TPA with pt. Discussed at length the risks and benefits of TPA with patient. Pt, Dr. Orellana and I agree that risks of TPA are too high. At this point , I will do further work up and recommend pt for admission. Case discussed with hospitalist, Dr. Desai, who will admit patient. I discussed results with patient. The patient agrees with this plan. - Diagnoses Provider Diagnoses: Chest pain, Neurological symptoms During the Visit The Following Alert/Code Occurred: Code Joiner - 1747 - Physician Notifications Discussed Care Of Patient With: Vic Desai - hospitalist Time Discussed With Above Provider: 18:37 Instructed by Provider To: Admit As Inpatient - Critical Care Time Critical Care Time: 30-74 min Discharge - Sign-Out/Discharge Documenting (check all that apply): Patient Departure - ADMIT Patient Received Moderate/Deep Sedation with Procedure: No - Discharge Plan Condition: Stable Disposition: ADMITTED TO [facility] - Billing Disposition and Condition Condition: STABLE Disposition: Admitted to [facility] - Attestation Statements Document Initiated by Lonniee: Yes Documenting Scribe: Moisés Giordano Provider For Whom Iggyibe is Documenting (Include Credential): Dr. Ravi Fermin MD Scribe Attestation: I, Moisés Giordano, scribed for Dr. Ravi Fermin MD on 10/21/18 at 2133. Scribe Documentation Reviewed: Yes Provider Attestation: The documentation as recorded by the Moisés murphy accurately reflects the service I personally performed and the decisions made by me, Dr. Ravi Fermin MD Status of Scribe Document: Viewed Consult Consult: 1753: Consult with Dr. Narayan, radiology Brain CT is negative. 180: Consult with [facility], On-call radiology: Brain CT is negative. 1821: Consult with Dr. Orellana, neurology at [facility] ([facility]): Neuro deficits are too small for TPA, discuss treatment with pt.
[2018-10-21 17:56] LABS: ABS Basophils 0 10^3/ul (0-0.2); ABS Eosinophils 0.2 10^3/ul (0-0.6); ABS Lymphocytes 3.2 10^3/ul (1.0-4.8); ABS Monocytes 0.7 10^3/ul (0-0.8); ABS Neutrophils 5.1 10^3/ul (1.5-7.7); ABS Nucleated RBC 0 10^3/ul; Eosinophil % 2.1 %; Hematocrit 45 % (36-46); Hemoglobin 15.6 g/dL (14.0-18.0); Lymphocyte % 34.6 %; Mean Corpuscular HGB Conc 35 g/dL (31-36); Mean Corpuscular Hemoglobin 30 pg (27-31); Mean Corpuscular Volume 86 fL (80-94); Mean Platelet Volume 6.7 fL (7.4-10.4); Nucleated Red Blood Cells % 0; Platelet Count 370 10^3/uL (150-450); Red Blood Count 5.23 10^6 /uL (4.18-5.48); Red Cell Distribution Width 13 % (10.5-15); White Blood Count 9.2 10^3/uL (3.5-10.8)
[2018-10-21 18:04] LABS: Activated Partial Thrombo Time 31.8 seconds (26.0-36.3); INR 0.89 (0.77-1.02)
[2018-10-21] MEDS ORDERED: Dextrose 50% Syringe 50 ML* 25 GM/50 ML SYRINGE IV PUSH ONE (18:10)
[2018-10-21 18:27] LABS: Albumin 4.8 g/dL (3.2-5.2); Albumin/Globulin Ratio 1.7 (1-3); BUN/Creatinine Ratio 13.5 (8-20); Calcium 9.7 mg/dL (8.6-10.3); EGFR African American 98.3 (>60); EGFR Non-African American 81.3 (>60); Globulin 2.9 g/dL (2-4); HDL Cholesterol 31.3 mg/dL; Potassium 3.8 mmol/L (3.5-5.0); Total Bilirubin 0.5 mg/dL (0.2-1.0); Total Protein 7.7 g/dL (6.4-8.9)
[2018-10-21] MEDS ORDERED: Ondansetron INJ* 2 MG/ML VIAL IV PRN (19:07)
[2018-10-21] MEDS ORDERED: Nicotine Inhaler* 10 MG AMP INH PRN (19:07)
[2018-10-21] MEDS ORDERED: Acetaminophen TAB* 325 MG PO PRN (19:07)
[2018-10-21] MEDS ORDERED: Aspirin 81 mg CHEW TAB* 81 MG TAB.CHEW ONE (19:23)
[2018-10-21] MEDS ORDERED: Aspirin 81 mg CHEW TAB* 81 MG TAB.CHEW PO ONE (19:24)
[2018-10-21] MEDS ORDERED: Iohexol 350* (CONTRAST) 500 ML MDV IV ONE (19:42)
--- NOTE | 2018-10-21 21:23 | HP ---
CC: Dr. Muro * ADMISSION HISTORY AND PHYSICAL: DATE OF ADMISSION: 10/21/18 PRIMARY CARE PROVIDER: Dr. Muro. MY ATTENDING WHILE IN THE HOSPITAL: Dr. Vic Desai.* (DICTATED BY ARMANDO JIMENEZ) CHIEF COMPLAINT: Numbness and tingling in the left hand with slurred speech. HISTORY OF PRESENT ILLNESS: Mr. Contreras is a 33-year-old male with past medical history significant for what he believes undiagnosed hypertension and previous hospital admission for adverse drug reaction, who presents to the emergency department after he was at work and had sudden onset of chest pain with left arm numbness and tingling down his arm and across his palm and into his fingertips. The patient also had slurred speech according to his supervisor [employer] , but no other neurologic deficits were noted. The patient states that the whole day he had been feeling relatively off. He had not been at work for very long. The patient had smoked marijuana at approximately 1 p.m. before going to work, which he does frequently. The patient has never had anything like this before. The patient has a headache which started approximately the same time, but is frontal, mild, pounding, but not associated with photophobia, nausea, or vomiting. The patient takes no medications. The patient has no recent changes in his diet. The patient had normal diet today. The patient has not been fasting. The patient has been under a significant amount of stress recently with custody battles over his children. The patient has no previous history of CVA or TIA. The patient did feel like he had palpitations with his heart racing during this episode. The patient had no changes in his vision. No ataxia. The room was not spinning. The patient had no focal weakness that he could tell. In the emergency department, the patient was found to have a fingerstick blood glucose of 68. The patient's symptoms slowly subsided, and after he was given dextrose, his symptoms subsided entirely. The patient's slurred speech was never noted in the emergency department. Due to concern for TIA, we were asked to evaluate the patient for admission to the hospital. PAST MEDICAL HISTORY: Untreated hypertension, history of renal failure associated with K2/spice use. PAST SURGICAL HISTORY: None. MEDICATIONS: None. ALLERGIES: HYDROCODONE. FAMILY HISTORY: The patient is estranged from his mother. He does not know her past medical history. The patient's father while he was old of what may have been an [place]. The patient has a sister with sleep apnea. The patient has no other medical history he knows of except for a family history of diabetes in his grandparents. SOCIAL HISTORY: The patient smokes approximately a pack a week. The patient denies alcohol. The patient smokes occasional marijuana. The patient works at [employer]. The patient is not . The patient has 4 biological children, who he has occasional custody of. The patient's girlfriend, Annmarie Hassan, will be his surrogate decision maker. REVIEW OF SYSTEMS: A 14-point review of systems was reviewed with the patient and is negative except as above in the HPI. PHYSICAL EXAMINATION GENERAL: The patient is a 33-year-old male who appears stated age and sitting comfortably in bed, in no acute distress. VITAL SIGNS: At the time of evaluation, temperature 98.1, pulse rate 83, respiratory rate 25, oxygen saturation 98% on room air, blood pressure 162/105. HEENT: Normocephalic, atraumatic. Sclerae anicteric. No conjunctival injection. Nasal mucosa moist. Oral mucosa moist. No pharyngeal erythema, discharge, or exudate. NECK: Supple, nontender. No lymphadenopathy. No carotid bruits auscultated. No JVD. RESPIRATORY: Clear to auscultation bilaterally. No wheezes, rales, or rhonchi. Good air exchange bilaterally. CARDIAC: Regular rate and rhythm. No clicks, murmurs, gallops, or rubs. Pulses are 2+ in the bilateral dorsalis pedis, posterior tibialis, and radial areas. ABDOMEN: Soft, nontender, nondistended. Bowel sounds present and normoactive in all 4 quadrants. No hepatosplenomegaly. No abdominal bruits auscultated. No hepatojugular reflux. GENITOURINARY: No suprapubic or CVA tenderness. NEURO: Cranial nerves II through XII intact. No focal deficits. Alert and oriented x3. Cranial nerve testing performed without difficulty. Sensation in the left arm to light touch, cold, and pinprick all intact. PSYCHIATRIC: Pleasant and cooperative. SKIN: Clean, dry, and intact. No rash. DIAGNOSTIC STUDIES/LAB DATA: White blood cell count 9.2, hemoglobin 15.6, hematocrit 45, platelet count 370. INR 0.98, aPTT 31.8, D-dimer less than 200. Sodium 141, potassium 3.8, chloride 105, carbon dioxide 29, anion gap 8, BUN 14 , creatinine 1.04, glucose 92, lactic acid 1.4, calcium 9.7. Bilirubin 0.5, AST 32, ALT 67, alkaline phosphatase 75. Troponin I 0.00. Protein 7.7, albumin 4.8, globulin 2.9. Triglycerides 471, cholesterol 226, LDL cholesterol 137, HDL cholesterol 31.3. Studies: Brain CT read as no acute intracranial abnormality. Chest x-ray shows no acute intrathoracic pathology. EKG shows normal sinus rhythm, normal axis, no ST segment elevation or depression, no hypertrophy or enlargement, no blocks or hypertrophy. ASSESSMENT AND PLAN: Impression: Mr. Contreras is a 33-year-old male with past medical history significant for hypertension and obesity who presents to the emergency department with sudden onset numbness in his left arm and slurred speech, who is now asymptomatic and will be admitted to the hospital for concern for transient ischemic attack. 1. Numbness, slurred speech, concern for transient ischemic attack. The patient is currently asymptomatic. The patient has significant risk factors for transient ischemic attack. The patient did feel as if his heart was pounding in his chest and felt poorly before he came to the emergency department. The patient's cholesterol panel is elevated. The patient has risk factors for both thrombotic and embolic stroke. The patient will be monitored on telemetry for signs of atrial fibrillation. The patient will be started on high-dose atorvastatin. The patient will receive aspirin in the emergency department. The patient will be started on Plavix and aspirin for 1 month for concern for transient ischemic attack. The patient will have a transthoracic echocardiogram for patent foramen ovale and risk factors for atrial fibrillation. The patient has been discussed with Neurology, who recommended large-vessel imaging of the patient's head and neck as well as an MRI of the brain and at some point testing for sleep apnea. The patient currently is moderately hypertensive. This will not be treated aggressively at the moment for brain perfusion, though this should be treated going forward. The patient will have a hemoglobin A1c to assess for risk factors. The patient has a headache, nonmigrainous. This does not sound like a complicated migraine. The patient had no abnormal movements. This was discussed with Neurology and they did not recommend an EEG due to the patient's cardiac risk factors as well as lack of abnormal movements. The patient is asymptomatic and has no needs for PT or OT. 2. Chest pain. The patient has obvious cardiac risk factors. The patient will have 3 troponins. The patient's first troponin was 0.00. This is likely more related to his transient ischemic attack symptoms than to acute coronary syndrome. Given the patient's concern for transient ischemic attack, any stress testing or other evaluation for ischemic heart disease should be deferred to the outpatient setting. 3. Hypertension. Permissive hypertension as above. This should be treated before the patient is discharged. 4. Hyperlipidemia. Treatment with high-dose therapy as above. 5. Tobacco abuse. The patient will have nicotine replacement while in the hospital. 6. FEN: The patient will have a heart-healthy diet without caffeine. The patient does not need fluids. 7. DVT prophylaxis: The patient is a low risk. The patient will have SCDs. 8. Disposition: The patient will be admitted to observation. 9. Code status: The patient would like to be a full code. TIME SPENT: Approximately 45 minutes was spent on the admission of this patient , 25 of which was spent [id number] with the patient obtaining history and physical and discussing treatment plan. This plan was discussed with my attending, Dr. Vic Desai, and he is in agreement. ARMANDO JIMENEZ [id number]/[facility] #: [id number] BRANDON
[2018-10-22 05:08] LABS: Urine Appearance Cloudy; Urine Bacteria Absent (Absent); Urine Bilirubin Negative (Negative); Urine Blood 3+ (Negative); Urine Color Yellow; Urine Glucose 1+(50 mg/dL) (Negative); Urine Ketones Negative (Negative); Urine Nitrite Negative (Negative); Urine Protein 2+(100 mg/dL) (Negative); Urine Red Blood Cell 3+(>10/hpf) (Absent); Urine Specific Gravity > 1.060 (1.010-1.030); Urine Urobilinogen Negative (Negative); Urine White Blood Cell Absent (Absent)
[2018-10-22 05:26] LABS: Barbiturates Urine Screen None Detected (None Detect); Benzodiazepine Urine Screen None Detected (None Detect); Urine Cannabinoids Screen Presumptive Positive (None Detect)
[2018-10-22 05:55] LABS: ABS Basophils 0 10^3/ul (0-0.2); ABS Eosinophils 0.3 10^3/ul (0-0.6); ABS Lymphocytes 2.8 10^3/ul (1.0-4.8); ABS Monocytes 0.7 10^3/ul (0-0.8); ABS Neutrophils 4.2 10^3/ul (1.5-7.7); ABS Nucleated RBC 0 10^3/ul; Eosinophil % 3.4 %; Hematocrit 42 % (36-46); Hemoglobin 14.3 g/dL (14.0-18.0); Lymphocyte % 35.1 %; Mean Corpuscular HGB Conc 34 g/dL (31-36); Mean Corpuscular Hemoglobin 30 pg (27-31); Mean Corpuscular Volume 86 fL (80-94); Nucleated Red Blood Cells % 0.1; Platelet Count 285 10^3/uL (150-450); Red Blood Count 4.83 10^6 /uL (4.18-5.48); Red Cell Distribution Width 13 % (10.5-15)
[2018-10-22 06:11] LABS: HDL Cholesterol 25.8 mg/dL; Magnesium 2.1 mg/dL (1.9-2.7)
[2018-10-22] MEDS ORDERED: Clopidogrel TAB* 75 MG PO SCH (09:00)
[2018-10-22] MEDS ORDERED: Aspirin EC TAB* 81 MG TAB.EC PO SCH (09:00)
[2018-10-22 14:14] VITALS: BP 141/100
--- NOTE | 2018-10-22 16:16 | ECHO ---
Patient: LEONOR HARRISON [facility] Rec#: [id number] : 1985 Date: 10/22/2018 Age: 33y Height: 185 cm / 72.8 in Weight: 127 kg / 279.9 lbs Sex: M BSA: 2.48 Room#: [facility] Admit Date#: 10/21/2018 Type: Inpatient Referring: CAROLE Reading: Shawn Cueto MD Delivery Associate: Iza Torres RDCS CC: Demetris Muro MD Transthoracic Echocardiogram Indication: TIA BP: 142/74 HR: 60 Rhythm: NSR Findings History: Untreated HTN, smoker. Technical Comments: The study quality is fair. Completed at 1055. Left Ventricle: The left ventricular chamber size is normal. Mild concentric left ventricular hypertrophy is observed. Global left ventricular wall motion and contractility are within normal limits. There is normal left ventricular systolic function. The estimated ejection fraction is 55-60%. There is septal flattening of the interventricular septum consistent with right ventricular volume or pressure overload. Abnormal left ventricular diastolic function is observed. The left ventricular diastolic filling pattern is restrictive. Left Atrium: The left atrial chamber size is normal. Right Ventricle: Moderator Band present. The right ventricle is moderately dilated. The right ventricular global systolic function is mildly reduced. Right Atrium: The right atrial cavity size is normal. Interatrial septum appears intact without evidence of shunting. The bubble study is negative. A patent foramen ovale is not demonstrated with color Doppler and agitated contrast. Aortic Valve: The aortic valve is trileaflet. There is no evidence of aortic valve thickening. There is no evidence of aortic regurgitation. There is no evidence of aortic stenosis. Mitral Valve: The mitral valve leaflets do not appear thickened. There is mild mitral valve prolapse. There is a trace of mitral regurgitation. There is no evidence of mitral stenosis. Tricuspid Valve: The tricuspid valve leaflets are normal. There is trace tricuspid regurgitation. Unable to estimate the right ventricular systolic pressure. There is no tricuspid stenosis. Pulmonic Valve: The pulmonic valve appears normal. There is no evidence of pulmonic regurgitation. There is no pulmonic stenosis. Pericardium: There is no significant pericardial effusion. A pericardial fat pad is visualized. Aorta: There is no dilatation of the ascending aorta. There is no dilatation of the aortic arch. The aortic root is normal in size. Pulmonary Artery: The main pulmonary artery appears normal. Venous: The inferior vena cava appears normal in size. There is a greater than 50% respiratory change in the inferior vena cava dimension. Contrast: Normal saline was used as contrast for the bubble study. Images 68 and 69. Intravenous contrast was used to help determine presence of intracardiac shunting. Summary: There was not any prior study for comparison. Conclusions Mild concentric left ventricular hypertrophy is observed. The estimated ejection fraction is 55-60%. The left ventricular diastolic filling pattern is restrictive. The right ventricle is moderately dilated. The right ventricular global systolic function is mildly reduced. Interatrial septum appears intact without evidence of shunting. The bubble study is negative. There is mild mitral valve prolapse. There is a trace of mitral regurgitation. Measurements Name Value Normal Range RVIDd (AP) 2D 3.9 cm (0.9 - 2.6) RVDdMajor (2D) 5.1 cm (2.2 - 4.4) RAd ISD 4CH 4.6 cm (3.4 - 4.9) RA (A4C)W 4.3 cm (2.9 - 4.6) IVSd (2D) 1.1 cm (0.6 - 1) LVPWd (2D) 1.2 cm (0.6 - 1) LVIDd (2D) 4.6 cm (3.6 - 5.4) LVIDs (2D) 3 cm - LV FS (2D) 34 % (25 - 45) Aortic Annulus 2.3 cm (1.4 - 2.6) Ao root diameter (2D) 3.2 cm (2.1 - 3.5) Ascending Ao 3.4 cm (2.1 - 3.4) Aortic arch 2.6 cm (1.8 - 3.4) LA dimension (AP) 2D 3.7 cm (2.3 - 3.8) LAd ISD 4CH 4.8 cm (2.9 - 5.3) LA ISD 4CH W 4.5 cm (2.5 - 4.5) Name Value Normal Range LA ESV BP (A/L) index 24 ml/m2 - Name Value Normal Range MV E-wave Vmax 0.7 m/sec - MV deceleration time 292 msec - MV A-wave Vmax 0.4 m/sec - MV E:A ratio 2 ratio - LV septal e' Vmax 0.09 m/sec - LV lateral e' Vmax 0.15 m/sec - LV E:e' septal ratio 7.8 ratio - LV E:e' lateral ratio 4.7 ratio - Name Value Normal Range AV Vmax 1 m/sec - AV VTI 20 cm - AV peak gradient 4 mmHg - AV mean gradient 2 mmHg - LVOT Vmax 0.8 m/sec - LVOT VTI 18 cm - LVOT peak gradient 2 mmHg - LVOT mean gradient 1 mmHg - LAWSON Vmax 1 m/sec - Name Value Normal Range IVC diameter 2 cm - Name Value Normal Range PV Vmax 1.1 m/sec - PV peak gradient 5 mmHg -
[2018-10-22] MEDS ORDERED: Atorvastatin* 80 MG TAB PO SCH (17:00)
--- NOTE | 2018-10-22 22:22 | DS ---
CC: Dr. Demetris Muro DISCHARGE SUMMARY: DATE OF ADMISSION: 10/21/18 DATE OF DISCHARGE: 10/22/18 PRIMARY CARE PROVIDER: Dr. Demetris Muro. HOSPITAL COURSE: The patient presented to [facility] on 10/21/18 at the recommendation and instruction from his employer at work. History obtained on admission stated that the patient was referred to the ER and was actually driven by his employer due to numbness and tingling complaint of left hand associated with slurred speech. By the time he arrived to the ER, it should be noted that his symptoms resolved. There was no remnant or any evidence of persistent upper extremity weakness or any slurred speech. In the emergency room, it was discussed by the neurology on-call for the stroke center by the ER attending at [facility], and at that time, they did not recommend to proceed with any tPA as the benefit does not outweigh the risk. The patient was brought in to our service and was placed on tele for working diagnosis of TIA. It was discussed the case over the phone with our neurologist, Dr. Baig, via the admitting provider and recommended to do the complete workup for TIA including MRI, echo with a bubble study, and CTA head and neck, which were all performed. The patient was seen today by me over the floor. From the first encounter this morning, the patient was agitated, demanding to be discharged, and it took several attempts to have him stay in the hospital until we get the final and formal report of his studies, and by now around 2 o'clock, his echocardiogram remains pending, I do not have the formal official report. I was notified by the nursing staff that he is taking off his tele, refusing to stay, and he is very angry, was yelling at the staff. I did inform the patient that the echo is not available, we will proceed with his discharge; however, he has to follow up with his primary for the final result of the echocardiogram. If his echo does indicate him to return to the emergency room, we will follow up with a phone call to have him return to the ER pending the echo finding. However, at this time, I deem him stable for discharge and follow up with the formal result of the echocardiogram by his PCP. With that mentioned, I deemed the patient stable for discharge with him fully understanding that he may receive a phone call if he requires to return to the emergency room. INPATIENT DIAGNOSTIC STUDIES: He had a CT of the brain in the emergency room, 10/21/18, shows no acute pathology, no bleed, no stroke. A chest x-ray on presentation, no acute disease, no infiltrates. MRI of the brain shows no acute intracranial abnormality, no convincing evidence of any demyelinating disease. CTA of the head and neck, there was no significant stenosis in the internal carotid artery and the CTA of the head shows no evidence of stenosis or aneurysm or thrombosis. DISCHARGE MEDICATIONS: None. DISCHARGE INSTRUCTIONS: Follow up with his primary care provider. I did business and financial counsel the patient extensively that he is at a high risk for sleep apnea which probably puts him on transient cardiac arrhythmia, hence he will benefit from weight loss, blood pressure control, and agent for antilipid management and I will defer that to his primary care as it does require compliance and commitment from the patient's part to adhere with treatment. DIET: Cardiac. ACTIVITY: Unrestricted. May return to work. DISCHARGE CONDITIONS : STABLE DISCHARGE DISPOSITION: HOME [id number]/[facility] #: [id number] BRANDON
== END 2018-10-22 14:30 | disposition home or self-care (01) ==
LOC: ED 17:30 → MEDTELE 19:07
PROVIDERS: ADMIT Internal Medicine; ATTEND Internal Medicine
DX: G45.9 Transient cerebral ischemic attack, unspecified (principal); R20.0 Anesthesia of skin; R47.81 Slurred speech; I10 Essential (primary) hypertension; N19 Unspecified kidney failure; Z72.0 Tobacco use; R07.9 Chest pain, unspecified
CPT/HCPCS: 36415; 70450; 70496; 70498; 70551; 71045; 80053; 80061; 80307; 81003; 81015; 83036; 83605; 83721; 83735; 84484; 85025; 85379; 85610; 85730; 86850; 86900; 86901; 93005; 93306; 96361; 96374; 99285; A9270-GY; Q9967

== ENCOUNTER 2018-12-04 10:54 | Emergency (ER) | payer OTHER ==
[2018-12-04 11:02] VITALS: BP 142/76
[2018-12-04] MEDS ORDERED: Lidocaine 1%* 5 ML VIAL INJ ONE (11:08)
[2018-12-04] MEDS ORDERED: Ketorolac INJ* 60 MG/2 ML VIAL IM ONE (11:25)
--- NOTE | 2018-12-04 11:28 | UC ---
Skin Complaint HPI - HPI Summary HPI Summary: Patient is a 33-year-old male who presents to the urgent care with chief complaint of having pain, swelling an abscess in the left underarm. He reports that he has multiple abscesses in the same area but this time more painful than the usual. Denies any fever and denies any chills denies any other complaint. - History of Current Complaint Chief Complaint: UCSkin Time Seen by Provider: 12/04/18 11:05 Stated Complaint: LUMP UNDER ARM Pain Intensity: 7 - Allergy/Home Medications Allergies/Adverse Reactions: Allergies Allergy/AdvReac Type Severity Reaction Status Date / Time acetaminophen [From Vicodin] Allergy Vomiting Verified 12/04/18 11:02 hydrocodone [From Vicodin] Allergy Vomiting Verified 12/04/18 11:02 PMH/Surg Hx/FS Hx/Imm Hx Previously Healthy: Yes Other History Of: Negative For: HIV, Hepatitis B, Hepatitis C, Anticoagulant Therapy - Surgical History Surgical History: None - Family History Known Family History: Positive: Hypertension, Diabetes Family History: no known cardio-vascular issues in family lineage - Social History Alcohol Use: Rare Substance Use Type: Marijuana Substance Use Comment - Amount & Last Used: OCCASIONALLY Smoking Status (MU): Smoker, Current Status Unknown Type: Cigarettes Amount Used/How Often: 1/4 PPD Length of Time of Smoking/Using Tobacco: 16 years Have You Smoked in the Last Year: Yes Household Exposure Type: Cigarettes - Immunization History Most Recent Influenza Vaccination: not utd Most Recent Tetanus Shot: utd Most Recent Pneumonia Vaccination: none Review of Systems All Other Systems Reviewed And Are Negative: Yes Constitutional: Positive: Negative Skin: Positive: Other - Abscess and cellulitis in the left axilla Physical Exam - Summary Physical Exam Summary: Vital signs: Reviewed Gen.: Patient is a well developed and nourished female in no acute distress. Patient is sitting comfortably on the stretcher. Head: Normacephalic and atraumatic Eyes: PERRLA, EOMI x2. Ears: Right ear canal and TM WNL and Left ear canal and TM WNL Nose and mouth: WNL Neck: Supple, Positive bilateral submandibular and anterior cervical lymphadenopathy. No JVD Lungs: CTA B/L CVS: S1 & S2 present. No murmurs appreciated. ABDOMEN: Soft NT w/ positive BS. EXT: FROM x 4 NEURO: A+O X 3. Skin: Positive abscess and cellulitis in the left axilla. Vital Signs: Initial Vital Signs Temp 99 F 12/04/18 10:59 Pulse 85 12/04/18 10:59 Resp 16 12/04/18 10:59 BP 142/76 12/04/18 10:59 Pulse Ox 100 12/04/18 10:59 Procedures - Incision and Drainage Left Axilla Anesthesia: Topical, Lidocaine Instrument(s): Scalpel - 11 blade Packing: Other - Packing Course/Dx - Course Course Of Treatment: In the urgent care course I did a I&D and I obtain some purulent discharge and Blood. I placed packing. Place the patient in Bactrim and discharged home with follow- up with the primary care physician or return to the urgent care in 3-4 days for recheck. The patient understands and agrees. Patient was given a tetanous booster. - Diagnoses Provider Diagnosis: Abscess, Cellulitis Discharge - Sign-Out/Discharge Documenting (check all that apply): Patient Departure All imaging exams completed and their final reports reviewed: No Studies - Discharge Plan Condition: Stable Disposition: HOME Prescriptions: Ibuprofen TAB* [Motrin TAB* 600 MG] 600 mg PO Q8H PRN #20 tab PRN Reason: Pain Sulfamethox/Trimethoprim DS* [Bactrim DS 800/160 TAB*] 1 tab PO BID #20 tab Patient Education Materials: Cellulitis (ED), Abscess (ED) Forms: *Work Release Referrals: Demetris Muro MD [Primary Care Provider] - Additional Instructions: Take medications as instructed F/U th PCP or UC in 3 days for wound check Increase your fluid intake Return to the UC if symptoms worsen - Billing Disposition and Condition Condition: STABLE Disposition: Home
[2018-12-04] MEDS ORDERED: Tetan/Diph/Pertus SYR(Tdap)* 0.5 ML SYR(BOOSTRIX) use SYR IM ONE (11:32)
--- NOTE | 2018-12-05 07:07 | UC ---
- Progress Note Progress Note: wound 2+ neutrophil on Bactrim No change zakiaj 12/05/18 Course/Dx - Diagnoses Provider Diagnoses: Abscess, Cellulitis Discharge - Sign-Out/Discharge Documenting (check all that apply): Post-Discharge Follow Up All imaging exams completed and their final reports reviewed: No Studies - Discharge Plan Condition: Stable Disposition: HOME Prescriptions: Ibuprofen TAB* [Motrin TAB* 600 MG] 600 mg PO Q8H PRN #20 tab PRN Reason: Pain Sulfamethox/Trimethoprim DS* [Bactrim DS 800/160 TAB*] 1 tab PO BID #20 tab Patient Education Materials: Cellulitis (ED), Abscess (ED) Forms: *Work Release Referrals: Demetris Muro MD [Primary Care Provider] - Additional Instructions: Take medications as instructed F/U [facility] PCP or UC in 3 days for wound check Increase your fluid intake Return to the UC if symptoms worsen - Billing Disposition and Condition Condition: STABLE Disposition: Home
== END 2018-12-04 11:35 | disposition home or self-care (01) ==
LOC: UCEAST 10:54
DX: L02.412 Cutaneous abscess of left axilla (principal); L03.112 Cellulitis of left axilla; F17.210 Nicotine dependence, cigarettes, uncomplicated; Z88.8 Allergy status to other drugs, medicaments and biological substances; Z88.5 Allergy status to narcotic agent
CPT/HCPCS: 10060; 87070; 87205; 96372; 99212; G0463; J1885

== ENCOUNTER 2018-12-05 18:05 | Emergency (ER) | payer OTHER ==
--- NOTE | 2018-12-05 20:03 | ED ---
Upper Extremity Pain - HPI Summary HPI Summary: This patient is a 33 year old M presenting to ED with a chief complaint of cyst to the left axilla worsening today. Patient had the cyst lanced and packed yesterday at [facility] but states it isnt draining and feels harder and bigger today and is burning. Patient was put on Bactrim and has only taken one dose. The patient rates the pain 7/10 in severity. Symptoms aggravated by nothing. Symptoms alleviated by nothing. Patient reports subjective fever. PMHx of asthma , migraine but no DM, HTN, COPD. FHx of HTN, DM. PSHx of cyst drainage. Patient drinks alcohol, uses marijuana, and smokes tobacco. - History of Current Complaint Chief Complaint: EDRashSkinAbscess Stated Complaint: "RASH UNDER LEFT ARM PT PT" Time Seen by Provider: 12/05/18 19:49 Hx Obtained From: Patient Onset/Duration: Still Present Timing: Constant Severity Currently: Moderate Pain Location: Other: - Left axilla Character: Burning - Hard and burning Aggravating Factor(s): Nothing Alleviating Factor(s): Nothing Associated Signs & Symptoms: Positive: Swelling, Redness, Other - Burning - Allergies/Home Medications Allergies/Adverse Reactions: Allergies Allergy/AdvReac Type Severity Reaction Status Date / Time acetaminophen [From Vicodin] Allergy Vomiting Verified 12/05/18 18:13 hydrocodone [From Vicodin] Allergy Vomiting Verified 12/05/18 18:13 PMH/Surg Hx/FS Hx/Imm Hx Endocrine/Hematology History: Denies: Hx Anticoagulant Therapy, Hx Diabetes, Hx Thyroid Disease Cardiovascular History: Denies: Hx Congestive Heart Failure, Hx Deep Vein Thrombosis, Hx Hypertension , Hx Myocardial Infarction, Hx Pacemaker/ICD Respiratory History: Reports: Hx Asthma - He is not on medications for this. He is "supposed" to have an albut. MDI Denies: Hx Chronic Obstructive Pulmonary Disease (COPD), Hx Lung Cancer, Hx Pneumonia, Hx Pulmonary Embolism GI History: Denies: Hx Gall Bladder Disease, Hx Gastrointestinal Bleed, Hx Ulcer, Hx Urosepsis History: Denies: Hx Kidney Stones, Hx Renal Disease Sensory History: Reports: Hx Contacts or Glasses Denies: Hx Hearing Aid Opthamlomology History: Reports: Hx Contacts or Glasses Neurological History: Reports: Hx Migraine - He states that he has chronic headaches, but no dx of migraine. Denies: Hx Dementia, Hx Seizures, Hx Transient Ischemic Attacks (TIA) Psychiatric History: Denies: Hx Anxiety, Hx Depression, Hx Panic Disorder, Hx Schizophrenia, Hx Bipolar Disorder Infectious Disease History: No Infectious Disease History: Denies: Hx Clostridium Difficile, Hx Hepatitis, Hx Human Immunodeficiency Virus (HIV), Hx of Known/Suspected MRSA, Hx Shingles, Hx Tuberculosis, Hx Known/ Suspected VRE, Hx Known/Suspected VRSA, History Other Infectious Disease, Traveled Outside the [place] in Last 30 Days - Family History Known Family History: Positive: Hypertension, Diabetes Family History: no known cardio-vascular issues in family lineage - Social History Alcohol Use: Rare Hx Substance Use: Yes Substance Use Type: Reports: Marijuana Substance Use Comment - Amount & Last Used: OCCASIONALLY Hx Tobacco Use: Yes Smoking Status (MU): Light Every Day Tobacco Smoker Type: Cigarettes Amount Used/How Often: 1/4 PPD Length of Time of Smoking/Using Tobacco: 16 years Have You Smoked in the Last Year: Yes Review of Systems Positive: Fever Skin: Other - Abscess on left axilla, hard and burning All Other Systems Reviewed And Are Negative: Yes Physical Exam - Summary Physical Exam Summary: Appearance: Well appearing, no pain distress Skin: swelling and tenderness of left axilla, firm consistency, 4x4cm Head/face: normal Eyes: EOMI, GREGOR ENT: normal Neck: supple, non-tender Respiratory: CTA, breath sounds present Cardiovascular: RRR, pulses symmetrical Abdomen: non-tender, soft Musculoskeletal: normal, strength/ROM intact Neuro: normal, sensory motor intact, A&Ox3 Triage Information Reviewed: Yes Vital Signs On Initial Exam: Initial Vitals Temp Pulse Resp BP Pulse Ox 100.3 F 96 18 124/87 96 12/05/18 18:09 12/05/18 18:09 12/05/18 18:09 12/05/18 18:09 12/05/18 18:09 Vital Signs Reviewed: Yes Procedures - Incision and Drainage Left Axilla Site: Left Axilla Anesthesia: Lidocaine - 2% Instrument(s): Needle - 18 Axilla Anesthesia: Local Instrument(s): Scalpel Packing: Drain, Other Diagnostics - Vital Signs Vital Signs Temp Pulse Resp BP Pulse Ox 12/05/18 18:09 100.3 F 96 18 124/87 96 - Laboratory Lab Statement: Any lab studies that have been ordered have been reviewed, and results considered in the medical decision making process. - Ultrasound No standard instances Ultrasound Interpretation Completed By: Radiologist Summary of Ultrasound Findings: Soft tissue US: Complex hypoechoic area in the left axilla in the area of incision measuring 1.8 x 1.9 x 2.5 cm consistent with abscess or possibly hematoma. Dr. Dewey has reviewed this radiology report. Re-Evaluation - Re-Evaluation First Eval Re-Evaluation Time: 21:30 Change: Unchanged Comment: Discussed US results with patient. Second Eval Re-Evaluation Time: 21:45 Change: Improved Comment: Performed I&D with patient consent. Drained pus, patient feels better. No complications during procedure. Course/Dx - Course Course Of Treatment: This patient is a 33 year old M presenting to ED with a chief complaint of cyst to the left axilla worsening today. Soft tissue US revealed complex hypoechoic area in the left axilla in the area of incision measuring 1.8 x 1.9 x 2.5 cm consistent with abscess or possibly hematoma. I performed an I&D on the left axilla and drained pus without complication. Following the procedure, the patient reports feeling better. Therefore, the patient will be discharged with diagnosis of left axilla abscess. He is hemodynamically stable and safe for discharge. Strict return precautions given and he will otherwise follow up with his PCP. - Diagnoses Differential Diagnosis/HQI/PQRI: Positive: Other - abscess axilla Provider Diagnoses: Abscess of left axilla Discharge - Sign-Out/Discharge Documenting (check all that apply): Patient Departure - Discharge Patient Received Moderate/Deep Sedation with Procedure: No - Discharge Plan Condition: Stable Disposition: HOME Prescriptions: Oxycodone HCl/Acetaminophen [Percocet] 1 tab PO TID #9 tab MDD 3 Patient Education Materials: Abscess (ED) Referrals: Demetris Muro MD [Primary Care Provider] - 3 Days Additional Instructions: Follow-up with your primary care physician in 3 days. RETURN TO THE ER FOR WORSENING OR CHANGING SYMPTOMS. - Billing Disposition and Condition Condition: STABLE Disposition: Home - Attestation Statements Document Initiated by Scribe: Yes Documenting Scribe: Ming Berg Provider For Whom Scribe is Documenting (Include Credential): Floyd Dewey MD Scribe Attestation: Ming Hernandez scribed for Floyd Dewey MD on 12/05/18 at 2225. Scribe Documentation Reviewed: Yes Provider Attestation: The documentation as recorded by the scribe, Ming Berg accurately reflects the service I personally performed and the decisions made by me, Floyd Dewey MD Status of Scribe Document: Viewed
[2018-12-05] MEDS ORDERED: Lidocaine 2% EPI 1:200000 MPF*10-20 ML VIAL ONE ×2 (21:36→21:55)
[2018-12-05] MEDS ORDERED: Lidocaine 2% EPI 1:200000 MPF*10-20 ML VIAL INJ ONE (21:40)
[2018-12-05 22:25] VITALS: BP 149/80
== END 2018-12-05 23:20 | disposition home or self-care (01) ==
LOC: ED 18:05
DX: L02.412 Cutaneous abscess of left axilla (principal); Z88.6 Allergy status to analgesic agent; Z88.5 Allergy status to narcotic agent; F17.210 Nicotine dependence, cigarettes, uncomplicated
CPT/HCPCS: 10060; 87070; 87077; 87186; 87205; 87640; 87641; 99282

== ENCOUNTER 2018-12-09 11:50 | Emergency (ER) | payer MEDICAID, OTHER ==
[2018-12-09 12:04] VITALS: BP 124/81
--- NOTE | 2018-12-09 12:26 | UC ---
HPI Wound/Suture Re-check - HPI Summary HPI Summary: 33-year-old male presents for wound check of abscess to his left axilla. Patient was initially seen at this facility on 12/04/2018 and diagnosed with an abscess with cellulitis. An I&D was performed and a wound culture was obtained. Culture showed positive staph aureus, negative MRSA. He was placed on Bactrim DS twice a day 10 days at that time. Patient was then seen again on 12/05/2018 in the emergency department for worsening of symptoms. He had only taken one dose of his Bactrim at that time. An ultrasound was obtained which showed a complex hypoechoic area measuring 1.8 cm x 1.9 cm x 2.5 cm consistent with an abscess or hematoma. A second I&D was performed and packing was placed into the wound. Patient was instructed that time to continue with his antibiotics and to follow up with his primary care provider in 3 days. Patient states that he has not been taking his antibiotics for the past 2 days as he has been at [facility] with his foster child who had been admitted for traumatic injuries secondary to a television falling on him. Patient states that he has noted some drainage from the wound. Denies any fever or chills. - History Of Current Complaint Chief Complaint: UCSkin Stated Complaint: WOUND CHECK Time Seen by Provider: 12/09/18 12:24 Hx Obtained From: Patient Pain Intensity: 0 - Allergies/Home Medications Allergies/Adverse Reactions: Allergies Allergy/AdvReac Type Severity Reaction Status Date / Time acetaminophen [From Vicodin] Allergy Vomiting Verified 12/09/18 12:03 hydrocodone [From Vicodin] Allergy Vomiting Verified 12/09/18 12:03 PMH/Surg Hx/FS Hx/Imm Hx Previously Healthy: Yes - Denies significant PMH Other History Of: Negative For: HIV, Hepatitis B, Hepatitis C, Anticoagulant Therapy - Surgical History Surgical History: None - Family History Known Family History: Positive: Hypertension, Diabetes Family History: no known cardio-vascular issues in family lineage - Social History Occupation: Employed Full-time Lives: With Family Alcohol Use: Rare Substance Use Type: Marijuana Substance Use Comment - Amount & Last Used: OCCASIONALLY Smoking Status (MU): Light Every Day Tobacco Smoker Type: Cigarettes Amount Used/How Often: 1/4 PPD Length of Time of Smoking/Using Tobacco: 16 years Have You Smoked in the Last Year: Yes Household Exposure Type: Cigarettes - Immunization History Most Recent Influenza Vaccination: not utd Most Recent Tetanus Shot: 03/05/2014 Most Recent Pneumonia Vaccination: none Review of Systems All Other Systems Reviewed And Are Negative: Yes Constitutional: Negative: Fever, Chills Skin: Positive: Other - see HPI Respiratory: Positive: Negative Cardiovascular: Positive: Negative Gastrointestinal: Positive: Negative Genitourinary: Positive: Negative Musculoskeletal: Positive: Negative Neurological: Positive: Negative Is Patient Immunocompromised?: No Physical Exam - Summary Physical Exam Summary: GENERAL APPEARANCE: Well developed, well nourished, alert and cooperative, and appears to be in no acute distress. NECK: Neck supple, non-tender without lymphadenopathy. CARDIAC: Normal S1 and S2. No S3, S4 or murmurs. Rhythm is regular. There is no peripheral edema, cyanosis or pallor. Extremities are warm and well perfused. Capillary refill is less than 2 seconds. Peripheral pulses intact. LUNGS: Clear to auscultation without rales, rhonchi, wheezing or diminished breath sounds. ABDOMEN: Positive bowel sounds. Soft, nondistended, nontender. No guarding or rebound. No masses or hepatosplenomegally. MUSKULOSKELETAL: ROM intact to all extremities. No joint erythema or tenderness. Normal muscular development. Normal gait. SKIN: Small amount of purulent drainage noted to dressing. 1 cm open incision to the left axilla with packing intact. There is mild erythema of the surrounding tissue with an 2.5 cm x 2 cm area of induration. No flucutance noted. Triage Information Reviewed: Yes Vital Signs: Initial Vital Signs Temp 98 F 12/09/18 12:00 Pulse 95 12/09/18 12:00 Resp 18 12/09/18 12:00 BP 124/81 12/09/18 12:00 Pulse Ox 98 12/09/18 12:00 Vital Signs Reviewed: Yes Course/Dx - Course Course Of Treatment: 33-year-old male presents for wound check of abscess to his left axilla. Patient was initially seen at this facility on 12/04/2018 and diagnosed with an abscess with cellulitis. An I&D was performed and a wound culture was obtained. Culture showed positive staph aureus, negative MRSA. He was placed on Bactrim DS twice a day 10 days at that time. Patient was then seen again on 12/05/2018 in the emergency department for worsening of symptoms. He had only taken one dose of his Bactrim at that time. An ultrasound was obtained which showed a complex hypoechoic area measuring 1.8 cm x 1.9 cm x 2.5 cm consistent with an abscess or hematoma. A second I&D was performed and packing was placed into the wound. Patient was instructed that time to continue with his antibiotics and to follow up with his primary care provider in 3 days. Patient states that he has not been taking his antibiotics for the past 2 days as he has been at [facility] with his foster child who had been admitted for traumatic injuries secondary to a television falling on him. Patient states that he has noted some drainage from the wound. Denies any fever or chills. Afebrile. Vital signs stable. Exam revealed small amount of purulent drainage noted to dressing, 1 cm open incision to the left axilla with packing intact, mild erythema of the surrounding tissue with an 2.5 cm x 2 cm area of induration, no flucutance noted. The packing was removed in its entirety. I do not feel that repacking the wound is necessary at this time. I discussed with the patient the importance that he start taking and complete the entire course of antibiotics as prescribed. He is to follow-up with his primary care provider in 3-5 days for a wound check. Reviewed wound care, anticipatory guidance, and warning symptoms with the patient. Verbalizes understanding and agrees care. - Differential Dx - Laceration/Wound Differential Diagnoses: Abscess, Cellulitis, Healing Wound - Diagnosis Provider Diagnosis: Abscess of left axilla, Cellulitis of left axilla, Visit for wound check Discharge - Sign-Out/Discharge Documenting (check all that apply): Patient Departure All imaging exams completed and their final reports reviewed: No Studies - Discharge Plan Condition: Stable Disposition: HOME Patient Education Materials: Cellulitis (ED), Abscess (ED) Referrals: Demetris Muro MD [Primary Care Provider] - 5 Days Additional Instructions: The abscess of your left arm pit appears to be improving and the packing was removed. Continue to keep the wound covered with a gauze bandage to absorb any drainage. The wound culture that was performed showed staphylcoccus areus. No MRSA. It is important that you take the antibiotics that were prescribed to you and the you finish the entire course even if feeling better. Follow up with your primary care provider in 3-5 days for a recheck of the wound. Call today to make the appointment. Seek immediate medical attention in the emergency room if you develop fever greater than 100.5 F, have severe pain that is not managed with pain medication , have redness that spreads, have increased swelling, or any worsening of symptoms. - Billing Disposition and Condition Condition: STABLE Disposition: Home
== END 2018-12-09 13:03 | disposition home or self-care (01) ==
LOC: UCEAST 11:50
DX: L02.412 Cutaneous abscess of left axilla (principal); L03.112 Cellulitis of left axilla; F17.210 Nicotine dependence, cigarettes, uncomplicated; Z88.5 Allergy status to narcotic agent
CPT/HCPCS: 99211; G0463

== ENCOUNTER 2019-01-14 09:04 | Emergency (ER) | payer OTHER ==
[2019-01-14] MEDS ORDERED: NS 0.9% 1000 ML** 1,000 ML BOLUS ONE ×2 (09:31→11:28)
[2019-01-14] MEDS ORDERED: Ondansetron INJ* 2 MG/ML VIAL IV ONE (09:31)
--- NOTE | 2019-01-14 09:47 | UC ---
Abdominal Pain Male HPI - HPI Summary HPI Summary: 33 yo male with 4 day hx of n/v/d some intermittent diffuse abd crampy pain decreased UOP no UTI symptoms no fever/chill has had diaphoresis weak and dizzy no CP or SOB - History of Current Complaint Chief Complaint: UCGeneralIllness Stated Complaint: VOMITING, ACHES, AND DIARRHEA Time Seen by Provider: 01/14/19 09:26 Hx Obtained From: Patient Onset/Duration: Sudden Onset, Lasting Days Timing: Constant Severity Initially: Mild Severity Currently: Moderate Pain Intensity: 5 Pain Scale Used: 0-10 Numeric Location: Diffuse Radiates to: Back - has low back pain Character: Cramping Aggravating Factor(s): Food Alleviating Factor(s): Rest Associated Signs And Symptoms: Positive: Diaphoresis, Dizzy, Back Pain, Decreased Appetite, Nausea, Vomiting - 4 x day, Diarrhea - 10 or more /day. Negative: Urinary Symptoms - Allergies/Home Medications Allergies/Adverse Reactions: Allergies Allergy/AdvReac Type Severity Reaction Status Date / Time acetaminophen [From Vicodin] Allergy Vomiting Verified 01/14/19 09:14 hydrocodone [From Vicodin] Allergy Vomiting Verified 01/14/19 09:14 PMH/Surg Hx/FS Hx/Imm Hx Previously Healthy: Yes Other History Of: Negative For: HIV, Hepatitis B, Hepatitis C, Anticoagulant Therapy - Surgical History Surgical History: None - Family History Known Family History: Positive: Hypertension, Diabetes Family History: no known cardio-vascular issues in family lineage - Social History Alcohol Use: Rare Substance Use Type: Marijuana Substance Use Comment - Amount & Last Used: OCCASIONALLY Smoking Status (MU): Light Every Day Tobacco Smoker Type: Cigarettes Amount Used/How Often: 1/4 PPD Length of Time of Smoking/Using Tobacco: 16 years Have You Smoked in the Last Year: Yes Household Exposure Type: Cigarettes - Immunization History Most Recent Influenza Vaccination: not utd Most Recent Tetanus Shot: 03/05/2014 Most Recent Pneumonia Vaccination: none Review of Systems All Other Systems Reviewed And Are Negative: Yes Constitutional: Positive: Negative Skin: Positive: Negative Eyes: Positive: Negative ENT: Positive: Negative Respiratory: Positive: Negative Gastrointestinal: Positive: Abdominal Pain, Vomiting, Diarrhea, Nausea Genitourinary: Positive: Negative Musculoskeletal: Positive: Myalgia - LBP Neurological: Positive: Negative Psychological: Positive: Negative Is Patient Immunocompromised?: Yes Physical Exam Triage Information Reviewed: Yes Appearance: No Pain Distress, Well-Nourished, Other: - diaphoretic Vital Signs: Initial Vital Signs Temp 96.7 F 01/14/19 09:11 Pulse 97 01/14/19 09:11 Resp 18 01/14/19 09:11 BP 132/91 01/14/19 09:11 Pulse Ox 98 01/14/19 09:11 Eyes: Positive: Conjunctiva Clear ENT: Positive: Hearing grossly normal. Negative: Nasal congestion, Nasal drainage Dental Exam: Normal Neck: Positive: Supple, Nontender, No Lymphadenopathy Respiratory: Positive: Lungs clear, Normal breath sounds, No respiratory distress, No accessory muscle use Cardiovascular: Positive: RRR, No Murmur Abdomen Description: Positive: Nontender, No Organomegaly, Soft. Negative: CVA Tenderness (R), CVA Tenderness (L) Bowel Sounds: Positive: Present Musculoskeletal: Positive: ROM Intact, No Edema Neurological: Positive: Alert Psychological Exam: Normal Skin Exam: Other - large red patch left leg with scale which patient states has been present x yrs Re-Evaluation - Re-Evaluation First Eval Re-Evaluation Time: 11:18 Change: Improved - nausea gone, has to urinate Third Eval Re-Evaluation Time: 12:41 Change: Improved - sitting up texting/much improved except low back pain Abd Pain Male Course/Dx - Differential Dx/Clinical Impression Provider Diagnosis: Gastroenteritis, Microscopic hematuria, Periumbilical hernia, Chronic pruritic rash in adult Discharge - Sign-Out/Discharge Documenting (check all that apply): Patient Departure All imaging exams completed and their final reports reviewed: Yes - Discharge Plan Condition: Stable Disposition: HOME Patient Education Materials: Gastroenteritis (ED), Hematuria (ED), Umbilical Hernia (ED) Referrals: Demetris Muro MD [Primary Care Provider] - 4 Days Maxim Montoya MD [Medical Doctor] - 2 Weeks (about valorie umbilical hernia) Vito Winston MD [Medical Doctor] - (about microscopic blood in urine ) Sherri Duke [Medical Doctor] - 2 Weeks (about chronic leg rash) - Billing Disposition and Condition Condition: STABLE Disposition: Home
[2019-01-14 11:29] VITALS: BP 140/80
[2019-01-14] MEDS ORDERED: Ketorolac INJ* 30 MG/ML 1 ML VIAL IV ONE (12:36)
[2019-01-14 16:55] LABS: ABS Basophils 0.1 10^3/ul (0-0.2); ABS Eosinophils 0.1 10^3/ul (0-0.6); ABS Lymphocytes 2.9 10^3/ul (1.0-4.8); ABS Monocytes 0.8 10^3/ul (0-0.8); Eosinophil % 1.2 %; Hematocrit 46 % (42-52); Hemoglobin 15.9 g/dL (14.0-18.0); Lymphocyte % 37.5 %; Mean Corpuscular HGB Conc 35 g/dL (31-36); Mean Corpuscular Hemoglobin 30 pg (27-31); Mean Corpuscular Volume 85 fL (80-94); Mean Platelet Volume 7.6 fL (7.4-10.4); Nucleated Red Blood Cells % 0.1; Platelet Count 333 10^3/uL (150-450); Red Blood Count 5.34 10^6 /uL (4.18-5.48); Red Cell Distribution Width 13 % (10-15); White Blood Count 7.8 10^3/uL (3.5-10.8)
[2019-01-14 17:00] LABS: Albumin 4.8 g/dL (3.2-5.2); Calcium 9.6 mg/dL (8.6-10.3); Potassium 3.7 mmol/L (3.5-5.0); Total Bilirubin 0.9 mg/dL (0.2-1.0)
[2019-01-14 17:06] LABS: BUN/Creatinine Ratio 15.1 (8-20); EGFR African American 111.9 (>60); EGFR Non-African American 92.5 (>60); Globulin 2.4 g/dL (2-4); Total Protein 7.2 g/dL (6.4-8.9)
--- NOTE | 2019-01-15 09:34 | UC ---
- Progress Note Progress Note: PLEASE CALL PATIENT. METABOLIC PANEL SHOWS SLIGHTLY ELEVATED LIVER FUNCTION TESTS. THIS MAY BE REACTIVE DUE TO HIS ACUTE CONDITION HOWEVER NEEDS TO BE REEVALUATED BY PCP. FOLLOW-UP ADVISED. CBC NORMAL. Course/Dx - Diagnoses Provider Diagnoses: Gastroenteritis, Microscopic hematuria, Periumbilical hernia, Chronic pruritic rash in adult Discharge - Sign-Out/Discharge Documenting (check all that apply): Post-Discharge Follow Up All imaging exams completed and their final reports reviewed: Yes - Discharge Plan Condition: Stable Disposition: HOME Prescriptions: Ondansetron TAB* [Zofran Tab*] 4 mg PO Q6H PRN #10 tab PRN Reason: Nausea Patient Education Materials: Gastroenteritis (ED), Umbilical Hernia (ED), Hematuria (ED) Forms: *Work Release Referrals: Maxim Montoya MD [Medical Doctor] - 2 Weeks (about valorie umbilical hernia) Sherri Duke [Medical Doctor] - 2 Weeks (about chronic leg rash) Demetris Muro MD [Primary Care Provider] - 3 Days Vito Winston MD [Medical Doctor] - (about microscopic blood in urine ) Additional Instructions: bring in stool for studies to ER for new or worsening symptoms - Billing Disposition and Condition Condition: STABLE Disposition: Home
== END 2019-01-14 13:19 | disposition home or self-care (01) ==
LOC: UCEAST 09:04
DX: K52.9 Noninfective gastroenteritis and colitis, unspecified (principal); R31.29 Other microscopic hematuria; K42.9 Umbilical hernia without obstruction or gangrene; L29.9 Pruritus, unspecified; R79.89 Other specified abnormal findings of blood chemistry; F17.210 Nicotine dependence, cigarettes, uncomplicated
CPT/HCPCS: 36415; 74176; 80053; 81003; 85025; 87086; 96360; 96361; 96374; 99212; G0463; J1885; J2405

== ENCOUNTER 2019-02-25 12:56 | Emergency (ER) | payer OTHER ==
[2019-02-25] MEDS ORDERED: Ketorolac INJ* 30 MG/ML 1 ML VIAL IM ONE (16:43)
[2019-02-25] MEDS ORDERED: oxyCODONE/Acetamin 5/325 MG* TAB PO ONE (16:43)
--- NOTE | 2019-02-25 16:47 | ED ---
Upper Extremity Pain - HPI Summary HPI Summary: Pt is a 34 y/o M presenting to the ED with a chief complaint of RUE pain. He states he was wrestling with his son on 02/17/19, and when he shifted to take his son down to the ground, he landed on his R shoulder incorrectly. He denies any initial pain, but woke up the next day with a burning pain from his R shoulder to his R elbow. Additionally, from his R elbow to his R hand is completely numb , including his R thumb, index finger, and most of his middle finger. His pain is worsened with ROM and touch. He denies neck pain. - History of Current Complaint Chief Complaint: EDNeurologicalDeficit Stated Complaint: NUMBNESS IN RIGHT ARM PER PT Time Seen by Provider: 02/25/19 16:27 Hx Obtained From: Patient Mechanism Of Injury: Unknown Onset/Duration: Started Days Ago, Still Present Timing: Constant, Lasting Days Severity Initially: Mild Severity Currently: Moderate Pain Location: Arm - R Aggravating Factor(s): Movement, Other - touch Alleviating Factor(s): Nothing Associated Signs & Symptoms: Positive: Numbness/Tingling. Negative: Neck Pain - Allergies/Home Medications Allergies/Adverse Reactions: Allergies Allergy/AdvReac Type Severity Reaction Status Date / Time hydrocodone [From Vicodin] Allergy Vomiting Verified 02/25/19 13:02 PMH/Surg Hx/FS Hx/Imm Hx Previously Healthy: Yes Endocrine/Hematology History: Denies: Hx Anticoagulant Therapy, Hx Diabetes, Hx Thyroid Disease Cardiovascular History: Denies: Hx Congestive Heart Failure, Hx Deep Vein Thrombosis, Hx Hypertension , Hx Myocardial Infarction, Hx Pacemaker/ICD Respiratory History: Reports: Hx Asthma - He is not on medications for this. He is "supposed" to have an albut. MDI Denies: Hx Chronic Obstructive Pulmonary Disease (COPD), Hx Lung Cancer, Hx Pneumonia, Hx Pulmonary Embolism GI History: Denies: Hx Gall Bladder Disease, Hx Gastrointestinal Bleed, Hx Ulcer, Hx Urosepsis History: Denies: Hx Kidney Stones, Hx Renal Disease Sensory History: Reports: Hx Contacts or Glasses Denies: Hx Hearing Aid Opthamlomology History: Reports: Hx Contacts or Glasses Neurological History: Reports: Hx Migraine - He states that he has chronic headaches, but no dx of migraine. Denies: Hx Dementia, Hx Seizures, Hx Transient Ischemic Attacks (TIA) Psychiatric History: Denies: Hx Anxiety, Hx Depression, Hx Panic Disorder, Hx Schizophrenia, Hx Bipolar Disorder - Immunization History Date of Tetanus Vaccine: 2013 Date of Influenza Vaccine: none Infectious Disease History: No Infectious Disease History: Denies: Hx Clostridium Difficile, Hx Hepatitis, Hx Human Immunodeficiency Virus (HIV), Hx of Known/Suspected MRSA, Hx Shingles, Hx Tuberculosis, Hx Known/ Suspected VRE, Hx Known/Suspected VRSA, History Other Infectious Disease, Traveled Outside the [place] in Last 30 Days - Family History Known Family History: Positive: Hypertension, Diabetes Family History: no known cardio-vascular issues in family lineage - Social History Alcohol Use: Rare Hx Substance Use: Yes Substance Use Type: Reports: Marijuana Substance Use Comment - Amount & Last Used: OCCASIONALLY Hx Tobacco Use: Yes Smoking Status (MU): Light Every Day Tobacco Smoker Type: Cigarettes Amount Used/How Often: 1/4 PPD Length of Time of Smoking/Using Tobacco: 16 years Have You Smoked in the Last Year: Yes Review of Systems Negative: Other - neck pain Positive: Myalgia - RUE pain Positive: Numbness - RUE All Other Systems Reviewed And Are Negative: Yes Physical Exam - Summary Physical Exam Summary: Appearance: The patient is well-nourished in no acute distress and in no acute pain. Skin: The skin is warm and dry and skin color reflects adequate perfusion. HEENT: The head is normocephalic and atraumatic. The pupils are equal and reactive. The conjunctivae are clear and without drainage. Nares are patent and without drainage. Mouth reveals moist mucous membranes and the throat is without erythema and exudate. The external ears are intact. The ear canals are patent and without drainage. The tympanic membranes are intact. Neck: The neck is supple with full range of motion and non-tender. There are no carotid bruits. There is no neck vein distension. Respiratory: Chest is non-tender. Lungs are clear to auscultation and breath sounds are symmetrical and equal. Cardiovascular: Heart is regular rate and rhythm. There is no murmur or rub auscultated. There is no peripheral edema and pulses are symmetrical and equal. Abdomen: The abdomen is soft and non-tender. There are normal bowel sounds heard in all four quadrants and there is no organomegaly palpated. Musculoskeletal: There is tenderness in the rhomboid area with some spasm to palpation. Extremities are non-tender with full range of motion. There is good capillary refill. There is no peripheral edema or calf tenderness elicited. Neurological: Patient is alert and oriented to person, place and time. The patient has symmetrical motor strength in all four extremities. Cranial nerves are grossly intact. Deep tendon reflexes are symmetrical and equal in all four extremities. Psychiatric: The patient has an appropriate affect and does not exhibit any anxiety or depression. Triage Information Reviewed: Yes Vital Signs On Initial Exam: Initial Vitals Temp Pulse Resp BP Pulse Ox 97.8 F 80 16 145/101 100 02/25/19 12:58 02/25/19 12:58 02/25/19 12:58 02/25/19 12:58 02/25/19 12:58 Vital Signs Reviewed: Yes Diagnostics - Vital Signs Vital Signs Temp Pulse Resp BP Pulse Ox 02/25/19 15:10 98.7 F 84 16 133/84 98 02/25/19 12:58 97.8 F 80 16 145/101 100 - Laboratory Lab Statement: Any lab studies that have been ordered have been reviewed, and results considered in the medical decision making process. - CT CT C-spine CT Interpretation Completed By: Radiologist Summary of CT Findings: 1. Negative for fracture or facet subluxation. 2. C5- C6 and C6-C7 degenerative spondylosis and posterior element osteoarthritis with resulting acquired spinal stenosis. Correlate with clinical assessment and consider MRI follow-up exam for further evaluation if deemed appropriate. ED physician has reviewed this report. Course/Dx - Course Course Of Treatment: Mr. Contreras was wrestling with his son about a week ago and landed on his right shoulder. He didn't notice any injury but the next morning he woke up with pain in his right shoulder. It is gradually gotten worse and now has numbness extending down from his right elbow laterally and including his thumb and second finger and part of his third finger. He was neurologically intact on exam but did have tenderness to range of motion of his right shoulder and some spasm in the rhomboid area. CT scan revealed C5 to 7 degenerative disc disease that's pretty significant. This is consistent with the distribution and I am going to give him a steroid burst and recommended follow-up as well as some tramadol for pain medicine. - Diagnoses Provider Diagnoses: Cervical radiculopathy Discharge - Sign-Out/Discharge Documenting (check all that apply): Patient Departure Patient Received Moderate/Deep Sedation with Procedure: No - Discharge Plan Condition: Stable Disposition: HOME Prescriptions: predniSONE [Prednisone 20 MG TAB] 20 mg PO BID #6 tablet traMADol TAB* [Ultram*] 50 mg PO Q6HR PRN #20 tab MDD 4 PRN Reason: Pain Patient Education Materials: Cervical Radiculopathy (ED) Forms: *Work Release Referrals: Demetris Muro MD [Primary Care Provider] - Additional Instructions: Please follow up with Dr. Muro within the next 2-3 days, and take your prescribed medications as instructed. Return to the emergency department with any new or worsening symptoms. - Billing Disposition and Condition Condition: STABLE Disposition: Home - Attestation Statements Document Initiated by Iggyibhussein: Yes Documenting Scribe: Ana Dobbs Provider For Whom Crow is Documenting (Include Credential): Teto Shane MD. Scribe Attestation: Ana Hernandez scribed for Teto Shane MD. on 02/25/19 at 1931. Scribe Documentation Reviewed: Yes Provider Attestation: The documentation as recorded by the Ana murphy accurately reflects the service I personally performed and the decisions made by , Teto Shane MD. Status of Scribe Document: Viewed
[2019-02-25 19:43] VITALS: BP 165/97
== END 2019-02-25 18:15 | disposition home or self-care (01) ==
LOC: ED 12:56
DX: M54.12 Radiculopathy, cervical region (principal); M47.892 Other spondylosis, cervical region; F17.210 Nicotine dependence, cigarettes, uncomplicated; Z88.5 Allergy status to narcotic agent
CPT/HCPCS: 72125; 96372; 99282; A9270-GY; J1885

== ENCOUNTER 2019-07-07 13:45 | Emergency (ER) | payer OTHER ==
[2019-07-07 14:08] VITALS: BP 154/82
--- NOTE | 2019-07-07 14:23 | UC ---
Skin Complaint HPI - HPI Summary HPI Summary: Pt has had a few small lumps under his left armpits. Many times they usually resolve but today they are bigger. - History of Current Complaint Chief Complaint: UCSkin Time Seen by Provider: 07/07/19 14:15 Stated Complaint: LUMP UNDER ARMPIT Hx Obtained From: Patient Onset/Duration: Gradual Onset Skin Exposure Onset/Duration: Days Ago Timing: Constant Onset Severity: Mild Current Severity: Moderate Pain Intensity: 8 Location: Other - Left axilla Character: Raised, Painful Aggravating Factor(s): Touch Alleviating Factor(s): Nothing Associated Signs & Symptoms: Positive: Tenderness - Allergy/Home Medications Allergies/Adverse Reactions: Allergies Allergy/AdvReac Type Severity Reaction Status Date / Time hydrocodone [From Vicodin] Allergy Vomiting Verified 07/07/19 14:06 Home Medications: Home Medications Bismuth Subsalicylate [Pepto-Bismol] 1 tab PO ONCE PRN 07/07/19 [History Confirmed 07/07/19] PMH/Surg Hx/FS Hx/Imm Hx Previously Healthy: Yes Other History Of: Negative For: HIV, Hepatitis B, Hepatitis C, Anticoagulant Therapy - Surgical History Surgical History: None - Family History Known Family History: Positive: Hypertension, Diabetes Family History: no known cardio-vascular issues in family lineage - Social History Alcohol Use: Rare Substance Use Type: Marijuana Substance Use Comment - Amount & Last Used: OCCASIONALLY Smoking Status (MU): Light Every Day Tobacco Smoker Type: Cigarettes Amount Used/How Often: 1/4 PPD Length of Time of Smoking/Using Tobacco: 16 years Have You Smoked in the Last Year: Yes Household Exposure Type: Cigarettes - Immunization History Most Recent Influenza Vaccination: not utd Most Recent Tetanus Shot: 03/05/2014 Most Recent Pneumonia Vaccination: none Review of Systems All Other Systems Reviewed And Are Negative: Yes Skin: Positive: Other - Small tender lumps left axilla worsening over the past day Is Patient Immunocompromised?: No Physical Exam Triage Information Reviewed: Yes Appearance: Well-Appearing, No Pain Distress, Well-Nourished Vital Signs: Initial Vital Signs Temp 98.2 F 07/07/19 14:02 Pulse 83 07/07/19 14:02 Resp 18 07/07/19 14:02 BP 154/82 07/07/19 14:02 Pulse Ox 98 12/26/19 14:02 Vital Signs Reviewed: Yes Neck: Positive: Supple, Nontender, No Lymphadenopathy Respiratory: Positive: Lungs clear, Normal breath sounds, No respiratory distress, No accessory muscle use Cardiovascular: Positive: RRR, No Murmur, Pulses Normal, Brisk Capillary Refill Musculoskeletal Exam: Normal Neurological Exam: Normal Psychological Exam: Normal Skin: Positive: Other - Several small tender lumps left axilla with minimal erythema. All lumps are very hard to palpation. No fluctuance. Course/Dx - Course Course Of Treatment: At this point in time, I do not feel these are ready to be incised. I am going to start the pt on Bactrim DS because he has a history of abscesses and Motrin 600 mg every 8 hours for pain (take with food). He is to call his primary care provider today to make an appointment for Thursday for a recheck. He is also to do warm, moist compresses 4-6 times a day for 20 minutes each time. - Diagnoses Provider Diagnosis: Abscess of left axilla Discharge ED - Sign-Out/Discharge Documenting (check all that apply): Patient Departure All imaging exams completed and their final reports reviewed: No Studies - Discharge Plan Condition: Fair Disposition: HOME Prescriptions: Ibuprofen TAB* [Motrin TAB* 600 MG] 600 mg PO Q8H PRN #21 tab PRN Reason: Pain - Mild Sulfamethox/Trimethoprim DS* [Bactrim DS 800/160 TAB*] 1 tab PO BID 10 Days #20 tab Patient Education Materials: Abscess (ED) Referrals: Demetris Muro MD [Primary Care Provider] - Additional Instructions: Warm, moist compresses 4-6 times a day, Take the Bactrim with food. Call Dr. Muro today and make an appointment for a recheck on Thursday - Billing Disposition and Condition Condition: FAIR Disposition: Home
== END 2019-07-07 14:35 | disposition home or self-care (01) ==
LOC: UCEAST 13:45
DX: L02.412 Cutaneous abscess of left axilla (principal); Z88.5 Allergy status to narcotic agent; F17.210 Nicotine dependence, cigarettes, uncomplicated
CPT/HCPCS: 99212; G0463

== ENCOUNTER 2019-07-14 11:05 | Emergency (ER) | payer OTHER ==
--- NOTE | 2019-07-14 13:16 | ED ---
Skin Complaint - HPI Summary HPI Summary: Patient is a 34 y/o M presenting to [facility] with complaints of a rash, possible abscess, to his left axilla. Area is characterized as hard and painful. He states that this rash has been present for some time, but notes that it has worsened in the past week. Per triage, "Pt says he was at urgent care a week ago and was placed on Bactrim and it has not worked". Patient notes that he has had similar Sx in the past and has had this area lanced two previous times. No other areas of rash noted. He states that he has been experiencing hot flashes and chills but denies fever. Nausea onset last night as well. On triage, pain is rated 8/10, nothing is noted to aggravate/alleviate Sx. He notes that he does not shave the affected area. He reports no Dx of hidradenitis suppurativa. Patient states that he has been told by a medical provider that he has the precursors for diabetes but has not actually received a Dx of diabetes. FMHx of diabetes in father is noted. No known allergies to antibiotics reported. Home medications and allergies are reviewed. - History of Current Complaint Chief Complaint: EDRashSkinAbscess Time Seen by Provider: 07/14/19 13:01 Stated Complaint: ABCESS, UNDER ARM Hx Obtained From: Patient Onset/Duration: Started Weeks Ago, Still Present, Worse Since Skin Exposure Onset/Duration: Weeks Ago Timing: Constant, Lasting Weeks Onset Severity: Worse Since: Current Severity: Severe Pain Intensity: 8 Pain Scale Used: 0-10 Numeric Skin Location: Other: - left axilla Character: Pain, Redness, Painful Aggravating Symptom(s): Nothing Alleviating Symptom(s): Nothing Associated Signs & Symptoms: Nausea, Chills - Additional Pertinent History Primary Care Physician: [id number] - Allergy/Home Medications Allergies/Adverse Reactions: Allergies Allergy/AdvReac Type Severity Reaction Status Date / Time hydrocodone [From Vicodin] Allergy Vomiting Verified 07/07/19 14:06 PMH/Surg Hx/FS Hx/Imm Hx Endocrine/Hematology History: Reports: Hx Diabetes - possibly - not medicated Denies: Hx Anticoagulant Therapy, Hx Thyroid Disease Cardiovascular History: Reports: Hx Hypertension - not follow up Denies: Hx Congestive Heart Failure, Hx Deep Vein Thrombosis, Hx Myocardial Infarction, Hx Pacemaker/ICD Respiratory History: Reports: Hx Asthma - He is not on medications for this. He is "supposed" to have an albut. MDI Denies: Hx Chronic Obstructive Pulmonary Disease (COPD), Hx Lung Cancer, Hx Pneumonia, Hx Pulmonary Embolism GI History: Denies: Hx Gall Bladder Disease, Hx Gastrointestinal Bleed, Hx Ulcer, Hx Urosepsis History: Denies: Hx Kidney Stones, Hx Renal Disease Sensory History: Reports: Hx Contacts or Glasses Denies: Hx Hearing Aid Opthamlomology History: Reports: Hx Contacts or Glasses Neurological History: Reports: Hx Migraine - He states that he has chronic headaches, but no dx of migraine. Denies: Hx Dementia, Hx Seizures, Hx Transient Ischemic Attacks (TIA) Psychiatric History: Denies: Hx Anxiety, Hx Depression, Hx Panic Disorder, Hx Schizophrenia, Hx Bipolar Disorder - Immunization History Date of Tetanus Vaccine: 2013 Date of Influenza Vaccine: none Infectious Disease History: No Infectious Disease History: Denies: Hx Clostridium Difficile, Hx Hepatitis, Hx Human Immunodeficiency Virus (HIV), Hx of Known/Suspected MRSA, Hx Shingles, Hx Tuberculosis, Hx Known/ Suspected VRE, Hx Known/Suspected VRSA, History Other Infectious Disease, Traveled Outside the [place] in Last 30 Days - Family History Known Family History: Positive: Hypertension, Diabetes Family History: no known cardio-vascular issues in family lineage - Social History Alcohol Use: Rare Hx Substance Use: Yes Substance Use Type: Reports: Marijuana Substance Use Comment - Amount & Last Used: OCCASIONALLY Hx Tobacco Use: Yes Smoking Status (MU): Former Smoker Type: Cigarettes Amount Used/How Often: 1/4 PPD Length of Time of Smoking/Using Tobacco: 16 years Have You Smoked in the Last Year: Yes Review of Systems Constitutional: Other - positive - hot flashes Positive: Chills. Negative: Fever Positive: Nausea Positive: Rash All Other Systems Reviewed And Are Negative: Yes Physical Exam - Summary Physical Exam Summary: Constitutional: Well-developed, Well-nourished, Alert. (-) Distressed Skin: At left axilla, there is a erythematous rash, palpable mass that is indurated and tender to palpation. Warm, Dry HENT: Normocephalic; Atraumatic Eyes: Conjunctiva normal Neck: Musculoskeletal ROM normal neck. (-) JVD, (-) Stridor, (-) Tracheal deviation Cardio: Rhythm regular, rate normal, Heart sounds normal; Intact distal pulses; The pedal pulses are 2+ and symmetric. Radial pulses are 2+ and symmetric. (-) Murmur Pulmonary/Chest wall: Effort normal. (-) Respiratory distress, (-) Wheezes, (-) Rales Abd: Soft, (-) tenderness, (-) Distension, (-) Guarding, (-) Rebound Musculoskeletal: (-) Edema Lymph: (-) Cervical adenopathy Neuro: Alert, Oriented x3 Psych: Mood and affect Normal Triage Information Reviewed: Yes Vital Signs On Initial Exam: Initial Vitals Temp Pulse Resp BP Pulse Ox 98.6 F 102 16 114/95 98 07/14/19 11:16 07/14/19 11:16 07/14/19 11:16 07/14/19 11:16 07/14/19 11:16 Vital Signs Reviewed: Yes Procedures - Procedure Summary Procedure Summary: Pus aspirated with 18 gauge needle. Given complexity of current condition, it was decided not to incise with scalpel. Patient is on Bactrim and will be prescribed this antibiotic for several more days. He is encouraged to follow up with surgery. Given recurrence, concerned for hidradenitis suppurativa. - Sedation Patient Received Moderate/Deep Sedation with Procedure: No - Incision and Drainage Left Axilla Site: Left Axilla Anesthesia: Local - lidocaine 1% Instrument(s): Needle Packing: Other - none Diagnostics - Vital Signs Vital Signs Temp Pulse Resp BP Pulse Ox 07/14/19 11:16 98.6 F 102 16 114/95 98 - Laboratory Lab Statement: Any lab studies that have been ordered have been reviewed, and results considered in the medical decision making process. - Ultrasound SOFT TISSUE US Ultrasound Interpretation Completed By: Radiologist Summary of Ultrasound Findings: SOFT TISSUE US IMPRESSION: COMPLEX FLUID COLLECTION OF THE LEFT AXILLA, CONCERNING FOR ABSCESS. ED PHYSICIAN HAS REVIEWED THIS REPORT. Re-Evaluation - Re-Evaluation First Eval Re-Evaluation Time: 15:25 Comment: US indicated abscess at left axilla, incision and drainage performed. Course/Dx - Course Course Of Treatment: Patient is a 34 y/o M presenting to [facility] with complaints of a rash, possible abscess, to his left axilla. Area is characterized as hard and painful. He states that this rash has been present for some time, but notes that it has worsened in the past week. Per triage, "Pt says he was at urgent care a week ago and was placed on Bactrim and it has not worked". Patient notes that he has had similar Sx in the past and has had this area lanced two previous times. No other areas of rash noted. He states that he has been experiencing hot flashes and chills but denies fever. Nausea onset last night as well. He reports no Dx of hidradenitis suppurativa. At left axilla, there is a erythematous rash, palpable mass that is indurated and tender to palpation. SOFT TISSUE US IMPRESSION: COMPLEX FLUID COLLECTION OF THE LEFT AXILLA, CONCERNING FOR ABSCESS. US indicated abscess at left axilla, incision and drainage performed. Lidocaine 1% 10 mg INJ administered. Pus aspirated with 18 gauge needle. Given complexity of current condition, it was decided not to incise with scalpel. Patient is on Bactrim and will be prescribed this antibiotic for several more days. He is encouraged to follow up with surgery. Given recurrence, concerned for hidradenitis suppurativa. - Diagnoses Provider Diagnoses: Abscess of left axilla Discharge ED - Sign-Out/Discharge Documenting (check all that apply): Patient Departure - discharge - Discharge Plan Condition: Stable Disposition: HOME Patient Education Materials: Abscess (ED) Referrals: Demetris Muro MD [Primary Care Provider] - 2 Days Maxim Montoya MD [Medical Doctor] - 2 Days Additional Instructions: PLEASE RETURN TO ED FOR ANY NEW OR WORSENING SYMPTOMS. PLEASE FOLLOW UP WITH YOUR PRIMARY CARE PHYSICIAN AND SURGERY IN 1-2 DAYS. - Attestation Statements Document Initiated by Crow: Yes Documenting Scribe: DOMINICK OGLESBY Provider For Whom Crow is Documenting (Include Credential): ESTRELLA BENITEZ DO Scribe Attestation: DOMINICK Hernandez scribed for ESTRELLA BENITEZ DO on 07/14/19 at 1626. Status of Scribe Document: Ready
[2019-07-14] MEDS: Lidocaine 1% MPF ** 5 ML VIAL INJ ONE (15:13)
[2019-07-14 16:37] VITALS: BP 132/103
--- NOTE | 2019-07-15 05:37 | ED ---
Imaging and Labs Follow Up Follow Up Type: Labs/Cultures Labs/Culture Result: Wound culture of the axilla shows MRSA negative MSSA positive Patient Communication/Plan: Waiting sensitivity report. Patient treated with Bactrim which is presumed appropriate Provider Diagnoses: Abscess of left axilla
== END 2019-07-14 16:36 | disposition home or self-care (01) ==
LOC: ED 11:05
DX: L02.412 Cutaneous abscess of left axilla (principal); E11.9 Type 2 diabetes mellitus without complications; I10 Essential (primary) hypertension; J45.909 Unspecified asthma, uncomplicated; Z87.891 Personal history of nicotine dependence; Z88.5 Allergy status to narcotic agent
CPT/HCPCS: 10060; 87070; 87077; 87186; 87205; 87640; 87641; 99282